=== PATIENT | female | born 1955 | race Caucasian/White ===

== ENCOUNTER 2020-06-21 17:00 | Outpatient (CLI) | payer MEDICARE, SELFPAY ==
--- NOTE | ~2020-06-21 | MM_ITS ---
EXAMINATION: MM screening maurilio BI w patience HISTORY: Screening mammogram TECHNIQUE: Craniocaudal and mediolateral oblique 3-D tomosynthesis images were obtained and synthetic 2-D images were generated. CAD analysis was submitted and interpreted. COMPARISON: 03/29/2019, 03/25/2018, 09/18/2016 bilateral digital screening mammogram examinations BREAST PARENCHYMAL COMPOSITION: There are scattered areas of fibroglandular density. FINDINGS: Bilateral upper mammographic asymmetries are noted (right MLO Tomosynthesis image 34/93, le ft MLO Tomosynthesis image 46/95); bilateral diagnostic mammography is recommended, with ultrasound i f required. Stable 5 mm circumscribed opacity in the lower outer quadrant of the right breast, consistent with be nign process. IMPRESSION: 1. Bilateral mammographic asymmetries 2. Bilateral diagnostic mammography is recommended, with ultrasound if required BI-RADS Category 0: Incomplete: Needs additional imaging evaluation. Reviewed, dictated and finalized at location A.
== END 2020-06-21 17:01 | disposition home or self-care (01) ==
LOC: ANHIMG 17:03
PROVIDERS: PCP Nurse Practitioner Family; Visit Provider Nurse Practitioner Family
DX: Z12.31 Encounter for screening mammogram for malignant neoplasm of breast (principal); R92.8 Other abnormal and inconclusive findings on diagnostic imaging of breast
CPT/HCPCS: 77063; 77067

== ENCOUNTER 2020-06-27 08:32 | Outpatient (CLI) | payer MEDICARE, SELFPAY ==
--- NOTE | 2020-06-27 11:00 | NEURO_ITS ---
Patient Number: [id number] Impression: # Complains of numbness of all extremities. # Left early Carpal Tunnel Syndrome. # Right ulnar neuropathy across the elbow. # Normal nerve conduction study of lower extremities. # Normal needle/EMG exam without any neurogenic changes. Nerve Conduction Studies Anti Sensory Summary Table Stim Site NR Peak (ms) P-T Amp (?V) Site1 Site2 Delta-P (ms) Dist (cm) Jose (m/s) Left Median Anti Sensory (2-3nd Digit) Wrist 3.4 20.5 Wrist 2-3nd Digit 3.4 14.0 41 Wrist 3.6 41.8 Wrist 2-3nd Digit 3.4 14.0 41 Right Median Anti Sensory (2-3nd Digit) Wrist 3.1 41.7 Wrist 2-3nd Digit 3.1 14.0 45 Wrist 3.0 18.8 Wrist 2-3nd Digit 3.1 14.0 45 Left Radial Anti Sensory (Base 1st Digit) Wrist 2.0 19.6 Wrist Base 1st Digit 2.0 0.0 Right Radial Anti Sensory (Base 1st Digit) Wrist 2.3 6.6 Wrist Base 1st Digit 2.3 0.0 Left Sup Fibular Anti Sensory (Ant Lat Mall) 14 cm 3.7 9.4 14 cm Ant Lat Mall 3.7 16.0 43 Right Sup Fibular Anti Sensory (Ant Lat Mall) 14 cm 3.7 1.3 14 cm Ant Lat Mall 3.7 16.0 43 Left Sural Anti Sensory (Lat Mall) Calf 3.6 10.4 Calf Lat Mall 3.6 16.0 44 Right Sural Anti Sensory (Lat Mall) Calf 3.7 7.9 Calf Lat Mall 3.7 16.0 43 Left Ulnar Anti Sensory (5th Digit) Wrist 2.3 22.0 Wrist 5th Digit 2.3 14.0 61 Right Ulnar Anti Sensory (5th Digit) Wrist 2.2 34.4 Wrist 5th Digit 2.2 14.0 64 Motor Summary Table Stim Site NR Onset (ms) O-P Amp (mV) Site1 Site2 Delta-0 (ms) Dist (cm) Jose (m/s) Left Median Motor (Abd Poll Brev) Wrist 4.0 1.4 Elbow Wrist 4.9 26.0 53 Elbow 8.9 1.1 Right Median Motor (Abd Poll Brev) Wrist 3.1 2.4 Elbow Wrist 4.7 26.0 55 Elbow 7.8 1.8 Left Peroneal Motor (Vastus Med) Ankle 4.1 0.6 Popit Ankle 7.5 36.0 48 Popit 11.6 0.5 Right Peroneal Motor (Vastus Med) Ankle 4.1 0.9 Popit Ankle 7.9 35.0 44 Popit 12.0 0.5 Left Tibial Motor (Abd Leon Brev) Ankle 4.6 3.3 Knee Ankle 9.9 40.0 40 Knee 14.5 1.3 Right Tibial Motor (Abd Leon Brev) Ankle 4.4 4.5 Knee Ankle 8.8 40.0 45 Knee 13.2 3.1 Left Ulnar Motor (Abd Dig Minimi) Wrist 2.8 3.9 A Elbow Wrist 5.3 29.0 55 A Elbow 8.1 2.8 Right Ulnar Motor (Abd Dig Minimi) Wrist 2.8 4.4 A Elbow Wrist 5.9 26.0 44 A Elbow 8.7 3.8 B Elbow Wrist 3.5 21.0 60 B Elbow 6.3 4.0 F Wave Studies NR F-Lat (ms) L-R F-Lat (ms) Left Median (Mrkrs) (Abd Poll Brev) 30.20 2.00 Right Median (Mrkrs) (Abd Poll Brev) 28.20 2.00 Left Peroneal (Mrkrs) (EDB) 53.78 0.35 Right Peroneal (Mrkrs) (EDB) 53.43 0.35 Left Tibial (Mrkrs) (Abd Hallucis) 53.21 0.04 Right Tibial (Mrkrs) (Abd Hallucis) 53.25 0.04 Left Ulnar (Mrkrs) (Abd Dig Min) 29.81 0.72 Right Ulnar (Mrkrs) (Abd Dig Min) 29.09 0.72 EMG Side Muscle Nerve Root Ins Act Fibs Amp Dur Recrt Comment Right 1stDorInt Ulnar C8-T1 Nml Nml Nml Nml Nml Right Ext Indicis Radial (Post Int) C7-8 Nml Nml Nml Nml Nml Right Ext Digitorum Radial (Post Int) C7-8 Nml Nml Nml Nml Nml Right BrachioRad Radial C5-6 Nml Nml Nml Nml Nml Right PronatorTeres Median C6-7 Nml Nml Nml Nml Nml Right Abd Poll Brev M
== END 2020-06-27 08:33 | disposition home or self-care (01) ==
LOC: ANHNEURO 08:34
PROVIDERS: PCP Nurse Practitioner Family; Visit Provider Psychiatry & Neurology Neurology
DX: R25.1 Tremor, unspecified (principal); G56.02 Carpal tunnel syndrome, left upper limb; G56.21 Lesion of ulnar nerve, right upper limb
CPT/HCPCS: 95886; 95913

== ENCOUNTER 2020-07-17 11:15 | Outpatient (CLI) | payer MEDICARE, SELFPAY ==
--- NOTE | ~2020-07-17 | MMUS_ITS ---
EXAMINATION: MM diagnostic mammo BI, US breast BI limited HISTORY: Bilateral upper mammographic asymmetries reported on screening mammogram of 06/21/2020 TECHNIQUE: Additional 3-D tomosynthesis images of both breasts were performed and synthetic 2-D image s were generated. CAD analysis was submitted and interpreted. High resolution bilateral upper outer a nd lower-outer quadrants breast ultrasound was performed. COMPARISON: 06/21/2020 bilateral digital screening mammogram FINDINGS: MAMMOGRAPHIC FINDINGS: There is a benign appearing 6 mm circumscribed opacity with halo sign in the lower outer quadrant rig ht breast, likely a small cyst benign cyst. No reproducible suspicious mass or architectural distorti on is evident in either breast. No malignant calcification, skin thickening or retraction. ULTRASOUND: No suspicious mass or shadowing or other significant sonographic abnormality is noted in the upper ou ter or lower outer quadrants of either breast. IMPRESSION: 1. No mammographic evidence of malignancy 2. Routine mammographic screening is recommended. BI-RADS Category 2: Benign finding(s). Reviewed, dictated and finalized at location A. IMPRESSION: 1. No mammographic evidence of malignancy 2. Routine mammographic screening is recommended. BI-RADS Category 2: Benign finding(s).
== END 2020-07-17 11:16 | disposition home or self-care (01) ==
PROVIDERS: PCP Nurse Practitioner Family; Visit Provider Nurse Practitioner Family
DX: R92.8 Other abnormal and inconclusive findings on diagnostic imaging of breast (principal)
CPT/HCPCS: 76642; 77066

== ENCOUNTER 2020-10-11 13:12 | Emergency (ER) | payer MEDICARE, SELFPAY ==
--- NOTE | ~2020-10-11 | XR_ITS ---
XR foot RT min 3V DATE: 10/11/2020 13:45 INDICATION: Distal foot pain following injury 2 days ago TECHNIQUE: 4 views COMPARISON: None FINDINGS: There is a virtually nondisplaced comminuted intra-articular fracture of the head of the pr oximal phalanx of the second digit. Diffuse osteopenia. No other fracture or dislocation, periosteal reaction or bone destruction. IMPRESSION: Comminuted intra-articular fracture of the head of the proximal phalanx of the second dig it Reviewed, dictated and finalized at location A. FIC ENGINEERING DIRECTOR IMPRESSION: Comminuted intra-articular fracture of the head of the proximal pha lanx of the second digit
[2020-10-11 13:31] VITALS: BP 131/60; PULSE 75; RESP 16; TEMP 36.9; O2SAT 99
--- NOTE | 2020-10-11 14:13 | ED.LOWEXIN ---
HPI - Extremity Injury (Lower) General Chief Complaint: Extremity Injury, Lower Stated Complaint: fell injury 2nd digit right foot Source: patient and RN notes reviewed Mode of arrival: ambulatory Limitations: no limitations History of Present Illness HPI Narrative: This is a 65-year-old white female who presented to urgent care today with complaints of pain, swelling, warmth and erythema to her second digit of her right foot. Patient also noted that she had drainage from her second digit of the right foot. according to patient she was walking upstairs when her slippers on in tripped on a step afterwards her toes started to swell, developed discoloration, warmth, redness and throbbing. patient has a history of sepsis caused by wound. Patient's x-ray did indicate Comminuted intra-articular fracture of the head of the proximal phalanx of the second digit. The patient denies SOB, CP, palpitation, extremity numbness, lightheadedness, dizziness, constipation, diarrhea, chills, or fever. Related Data Home Medications Medication Instructions Recorded Confirmed albuterol sulfate 90 mcg INHALATION PRN PRN 10/11/20 10/11/20 alprazolam 0.25 mg PO PRN PRN 10/11/20 10/11/20 benzonatate 100 mg PO PRN PRN 10/11/20 10/11/20 cholecalciferol (vitamin D3) 1,250 mcg PO WEEKLY 10/11/20 10/11/20 doxycycline hyclate 100 mg PO DAILY 10/11/20 10/11/20 gabapentin 100 mg PO TID 10/11/20 10/11/20 montelukast 10 mg PO DAILY 10/11/20 10/11/20 pantoprazole 40 mg PO DAILY 10/11/20 10/11/20 propranolol 60 mg PO DAILY 10/11/20 10/11/20 tramadol 50 mg PO PRN PRN 10/11/20 10/11/20 zolpidem 10 mg PO DAILY 10/11/20 10/11/20 Allergies Allergy/AdvReac Type Severity Reaction Status Date / Time Quinolones Allergy Severe Hives Verified 10/11/20 13:38 Sulfa (Sulfonamide Allergy Intermediate Dry Mouth Verified 10/11/20 13:38 Antibiotics) levofloxacin AdvReac Severe Hives Verified 10/11/20 13:38 ipratropium AdvReac Intermediate SPIRIVA Verified 10/11/20 13:38 ALLERGY - NOT IN DRUG LISTING [facility] Family History Family History Mother Family history of chronic obstructive pulmonary disease Father Family history of pancreatic cancer Diabetes mellitus Sibling Family history of malignant neoplasm of kidney Family history of amyotrophic lateral sclerosis Family history of malignant neoplasm, Onset Age: 73 Grandparent Family history of heart disease in male family member before age 55 Other Family history of cardiovascular disease Hypertension Social History Social History Smoking status: Current every day smoker Alcohol intake: never Gender identity (if verbalized by the patient): Female Exam Narrative: Exam Narrative: GENERAL: This is a well-nourished, well-developed patient, in no apparent distress. HEAD: normocephalic, atraumatic. EYES: PERRL. Sclera clear/white. Vision is grossly intact. EARS: External ears normal, auditory canals clear and without drainage, TMs normal without perforation. Hearing grossly intact. NOSE: External nose normal with no obvious nasal discharge, nares without redness, no rhinorrhea. THROAT: Mucous membranes moist, posterior pharynx clear. NECK: Neck supple, non-tender without lymphadenopathy, masses or thyromegaly. CARDIOVASCULAR: Regular rate and rhythm without murmurs, gallops, or rubs. RESPIRATORY: Clear to auscultation. Breath sounds equal bilaterally. No wheezes, rales, or rhonchi. GASTROINTESTINAL: Abdomen soft, non-tender, nondistended. Bowel sounds are active. No hepato-splenomegaly, or palpable masses. No guarding. SKIN: warm, intact with no suspicious lesions or rash, good texture and turgor. NEURO: awake, alert, and oriented to person, place and time. There were no obvious focal neurologic abnormalities. Steady gait EXTREMITIES: Right foot second digit edematous with e
== END 2020-10-11 14:21 | disposition home or self-care (01) ==
PROVIDERS: Emergency Provider Nurse Practitioner; PCP Nurse Practitioner Family
DX: S92.514A Nondisplaced fracture of proximal phalanx of right lesser toe(s), initial encounter for closed fracture (principal); W10.9XXA Fall (on) (from) unspecified stairs and steps, initial encounter; L03.031 Cellulitis of right toe; Z20.828 Contact with and (suspected) exposure to other viral communicable diseases; F17.200 Nicotine dependence, unspecified, uncomplicated
CPT/HCPCS: 73630; 99214; G0463

== ENCOUNTER 2021-08-06 08:01 | Outpatient (CLI) | payer MEDICARE, SELFPAY ==
--- NOTE | ~2021-08-06 | US_ITS ---
EXAMINATION: US abdomen complete EXAM DATE: 08/06/2021 09:06 INDICATION: RLQ Abd Pain. Right Sided Pain . TECHNIQUE: Multiple grayscale and Doppler images of the complete abdomen were obtained (by a technolo gist who performed the scan) and subsequently reviewed. Comparison is made to prior examination from 01/17/15. FINDINGS: The abdominal aorta is normal in caliber. Visualized portion IVC is patent. The pancreatic head a nd body are normal in appearance. The pancreatic tail is not visualized. The liver has normal echogenicity and contour. There are no focal liver lesions identified. There is no evidence of intrahepatic biliary duct dilation. Portal venous flow was seen in the hepatopedal , normal direction and has normal Doppler waveform. Common bile duct measures 3 mm, which is normal. The gallbladder fossa is unremarkable. Right kidney: There is normal contour and echogenicity. It measures 7.7 x 3.7 x 3.4 centimeters. T here are no focal renal lesions identified. There is no hydronephrosis. Left kidney: There is normal contour and echogenicity. It measures 9.3 x 4.8 x 4.5 centimeters. Th ere are no focal renal lesions identified. There is no hydronephrosis. The spleen is morphologically normal. IMPRESSION: 1. Mild right renal atrophy. 2. No acute findings. Reviewed, dictated and finalized at location A.
== END 2021-08-06 08:02 | disposition home or self-care (01) ==
PROVIDERS: PCP Nurse Practitioner Family; Visit Provider Nurse Practitioner Family
DX: R10.31 Right lower quadrant pain (principal); N26.1 Atrophy of kidney (terminal)
CPT/HCPCS: 76700

== ENCOUNTER → 2021-08-20 10:10 | Outpatient (CLI) | payer MEDICARE, SELFPAY ==
--- NOTE | ~2021-08-20 | CT_ITS ---
EXAMINATION: CT abdomen pelvis wo con DATE: 08/20/2021 10:35 INDICATION: Right lower quadrant pain TECHNIQUE: Computed tomography (CT) of the abdomen and pelvis was performed without intravenous contr ast. The dose-length product (DLP) was 873.01 mGy-cm. Automated exposure control and iterative recons truction technique were employed. COMPARISON: 11/21/2019 FINDINGS: Minimal dependent atelectasis is present in the lung bases. The heart size is normal. There is a moderate-sized sliding hiatal hernia. The gallbladder is surgically absent. Punctate calcificat ions in an otherwise normal spleen likely represent healed granulomatous disease. The pancreas and ad renal glands are normal. The kidneys are unremarkable. There is calcified atherosclerosis of the aort a and many of the other arteries. No pathologically enlarged abdominal or pelvic lymph nodes are iden tified. There is no free intraperitoneal gas or evidence of bowel obstruction. Colonic diverticulosis is present without evidence of diverticulitis. The appendix is normal. There is mild lumbar spondylo sis. Fat-containing umbilical hernia is noted. IMPRESSION: 1. No CT correlate for the patient's symptoms. 2. Diverticulosis without evidence of diverticulitis. Reviewed, dictated and finalized at location A.
== END ==
PROVIDERS: PCP Nurse Practitioner Family; Visit Provider Surgery
DX: R10.31 Right lower quadrant pain (principal); K57.30 Diverticulosis of large intestine without perforation or abscess without bleeding
CPT/HCPCS: 74176

== ENCOUNTER 2022-08-20 10:09 | Outpatient (CLI) | payer MEDICARE, SELFPAY ==
--- NOTE | ~2022-08-20 | MM_ITS ---
EXAMINATION: MM screening [facility] BI w patience HISTORY: Screening TECHNIQUE: Craniocaudal and mediolateral oblique 3-D tomosynthesis images were obtained and synthetic 2-D images were generated. CAD analysis was submitted and interpreted. COMPARISON: Comparison to multiple prior studies sequentially, with oldest reviewed study dated 07/2015. BREAST PARENCHYMAL COMPOSITION: There are scattered areas of fibroglandular density. FINDINGS: There is no evidence of suspicious mass, calcification, or architectural distortion to sugg est malignancy in either breast. There has been no suspicious interval change. IMPRESSION: 1. No mammographic evidence of malignancy. 2. Recommend routine screening mammography in one year. BI-RADS Category 1: Negative Reviewed, dictated and finalized at location A.
== END 2022-08-20 10:10 | disposition home or self-care (01) ==
LOC: ANHIMG 10:12
PROVIDERS: PCP Nurse Practitioner Family; Visit Provider Obstetrics & Gynecology
DX: Z12.31 Encounter for screening mammogram for malignant neoplasm of breast (principal)
CPT/HCPCS: 77063; 77067

== ENCOUNTER 2022-10-09 08:44 | Outpatient (CLI) | payer MEDICARE, SELFPAY ==
--- NOTE | ~2022-10-09 | MR_ITS ---
EXAMINATION: MR brain/brain stem wo/w con DATE: 10/09/2022 19:25 TISSUE PACKER INDICATION: Familial ALS. Vision changes. TECHNIQUE: Magnetic resonance imaging (MRI) of the brain and brainstem was performed without and with 15 cc MultiHance intravenous contrast. Sequences included sagittal and axial T1-weighted SE, axial d iffusion-weighted FS SE, axial T2*-weighted GRE, axial T2-weighted FLAIR Propeller, and axial T2-weig hted Propeller. Apparent diffusion coefficient (ADC) maps were created. COMPARISON: MRI dated 11/18/2012 FINDINGS: The brain volume and ventricular system are within normal limits. The brain parenchymal si gnal intensity pattern and celaya/white matter is normal and there is no evidence of hemorrhage, space occupying masses or infarctions. There are scattered mild periventricular and subcortical white matte r changes, most likely related to small vessel ischemic disease (microangiopathy). No abnormal contra st enhancement. The flow signal voids of the major arterial structures about the [place] and within the barry r dural venous sinuses appear grossly unremarkable and patent. The seventh and eighth cranial nerve complexes are normal. The mid sagittal image demonstrates a normal craniovertebral junction and yaritza us callosum. The paranasal sinuses are grossly unremarkable. No abnormal contrast enhancement was appreciated. IMPRESSION: 1: No acute intracranial abnormality. 2: Chronic age-related findings. Reviewed, dictated and finalized at location A. UE PACKER
--- NOTE | ~2022-10-09 | US_ITS ---
US thyroid INDICATION: Thyroid nodules TECHNIQUE: Real-time sonographic images of the thyroid gland were obtained. COMPARISON: No prior studies for comparison. FINDINGS: The right thyroid lobe measures 4.2 x 2.2 x 1.6 cm. The left thyroid lobe measures 3.8 x 1 .5 x 1.6 cm. There is normal echotexture and echogenicity throughout the thyroid gland. There are mul tiple small nodules in both lobes of the thyroid gland. Largest dominant nodule in the right lobe cathy sures 7 x 5 x 4 mm. This nodule is solid, hypoechoic, wider than tall, smoothly marginated without ec hogenic foci, TR 4. Largest dominant nodule in the left lobe measures 6 x 6 x 5 mm and is solid, hype rechoic, wider than tall, ill-defined margins with punctate echogenic foci, TR 4. Normal vascular aziza w is present. IMPRESSION: 1. Bilateral thyroid nodules, consistent with multinodular goiter. None of the nodules meet sonograp hic criteria for biopsy. Reviewed, dictated and finalized at location A. RIOR WALL ASSEMBLER IMPRESSION: 1. Bilateral thyroid nodules, consistent with multinodular goiter. None of the nodules meet sonographic criteria for biopsy.
== END 2022-10-09 08:45 | disposition home or self-care (01) ==
PROVIDERS: PCP Nurse Practitioner Family; Visit Provider Nurse Practitioner Family
DX: G12.21 Amyotrophic lateral sclerosis (principal); H53.9 Unspecified visual disturbance; H53.2 Diplopia; R25.1 Tremor, unspecified; R41.3 Other amnesia; R91.8 Other nonspecific abnormal finding of lung field
CPT/HCPCS: 70553; 76536; A9577

== ENCOUNTER 2023-09-02 14:16 | Outpatient (CLI) | payer MEDICARE, SELFPAY ==
--- NOTE | ~2023-09-02 | MM_ITS ---
EXAMINATION: MM screening [facility] BI w patience HISTORY: Screening mammogram TECHNIQUE: Craniocaudal and mediolateral oblique 3-D tomosynthesis images were obtained and synthetic 2-D images were generated. CAD analysis was submitted and interpreted. COMPARISON: 08/20/2022, 07/17/2020, 06/21/2020, 03/29/2019 BREAST PARENCHYMAL COMPOSITION: There are scattered areas of fibroglandular density. FINDINGS: No suspicious mass, calcification, or architectural distortion are identified in either joss ast to suggest malignancy. There has been no suspicious interval change. IMPRESSION: 1. No mammographic evidence of malignancy. 2. Recommend routine screening mammography in one year. BI-RADS Category 1: Negative Reviewed, dictated and finalized at location A.
== END 2023-09-02 14:17 | disposition home or self-care (01) ==
LOC: ANHIMG 14:18
PROVIDERS: PCP Nurse Practitioner Family; Visit Provider Obstetrics & Gynecology
DX: Z12.31 Encounter for screening mammogram for malignant neoplasm of breast (principal)
CPT/HCPCS: 77063; 77067

== ENCOUNTER 2024-11-23 13:15 | Outpatient (CLI) | payer MEDICARE, SELFPAY ==
--- NOTE | ~2024-11-23 | MMUS_ITS ---
EXAMINATION: MM diagnostic maurilio BI w patience, US breast LT limited HISTORY: Palpable left breast abnormality. TECHNIQUE: Additional 3-D tomosynthesis images of the breasts were performed and synthetic 2-D images were generated. CAD analysis was submitted and interpreted. High resolution Limited left breast ultr asound was performed. COMPARISON: Comparison to multiple prior studies sequentially, with oldest reviewed study dated 03/25. BREAST PARENCHYMAL COMPOSITION: Not dense: There are scattered areas of fibroglandular density. FINDINGS: MAMMOGRAPHIC FINDINGS: The breasts are stable. No new masses, calcifications or architectural distortion in either breast to suggest malignancy. ULTRASOUND: Limited left breast ultrasound: Normal heterogeneous echotexture without focal solid or cystic mass. IMPRESSION: 1. No evidence for malignancy in either breast. 2. Routine yearly screening mammogram and regular clinical breast examination are recommended. BI-RADS Category 1: Negative Reviewed, dictated and finalized at location A. NICAL TRAINING COORDINATOR IMPRESSION: 1. No evidence for malignancy in either breast. 2. Routine yearly screening mammogram and regular clinical breast examination a re recommended. BI-RADS Category 1: Negative
== END 2024-11-23 13:16 | disposition home or self-care (01) ==
LOC: ANHIMG 13:19
PROVIDERS: PCP Nurse Practitioner Family; Visit Provider Obstetrics & Gynecology
DX: N64.4 Mastodynia (principal)
CPT/HCPCS: 76642; 77062; 77066; G0279

== ENCOUNTER 2024-12-22 06:54 | Emergency (ER) | payer MEDICARE, SELFPAY ==
--- NOTE | ~2024-12-22 | XR_ITS ---
Clinical Indication: Dyspnea AP and lateral views of the chest: Comparison: 11/18/2017 Findings: There is mild haziness right lung base. Left lung clear. Cardiomediastinal silhouette is w ithin normal limits. Bones and soft tissues are unremarkable. Impression: Probable subtle right basilar pneumonia. Reviewed, dictated and finalized at location . SPECIALIST Impression: Probable subtle right basilar pneumonia.
--- OUTSIDE RECORDS SUMMARY | 2024-12-22 06:56 | XMS_ITS | Encounter Summary ---
Author Organization [facility] Address [address] [place] [id number] Care Team Providers Care Cage Manager Name Role Phone Deena Gar Primary Care Provider Reason for Referral * Medication Prior Authorization - Closed Specialty Diagnoses / Procedures Referred By Torie t Referred To Contact Diagnoses Wheezing Deena Gar FNP [address] [place] [id number] Phone: tel: fax: Referral ID Status Reason Start Date Expiration Date Visits Re quested Visits Authorized [id number] Closed 1 1 CELLAR STOCK CLERK Reason for Visit * Reason Comments Cough Sore Throat Congestion Fever 99.6 Encounter Details Date Type Department Care Team (Late st Contact Info) Description 12/21/2024 10:40 AM WINE CELLAR STOCK CLERK Telemedicine [facility] [id number] [place] [id number] Deena Gar FNP [facility] [place] [address] Cough; Sore Throat; Congestion; Fever (99.6) Social History Tobacco Use Types Packs/Day Years Used Date Smoking Tobacco: Former Cigarettes 1 15 0 07/12/1986 - 07/12/2001 Passive Smoke Exposure: Past Smokeless Tobacco: Never Alcohol Use Standard Drinks/Week Comments Not Currently 1.7 (1 standard drin k = 0.6 oz pure alcohol) Only on occasion when dining out not weekly or daily AUDIT-C Answer Date Recorded Frequency of Alcohol Consumption Never 02/22/2019 Average Number of Drinks Not on file 019 Frequency of Binge Drinking Not on file 02/01 PHQ-2 Answer Date Recorded Patient Health Questionnaire-2 Score 0 12/21/2024 Comments No Sex and Gender Information Value Date Recorded Sex Assigned at Female 12/12/2024 11:16 AM WINE CELLAR STOCK CLERK Legal Sex Female 12:12 PM CDT Gender Identity Female 12/12/2024 11:16 AM WINE CELLAR STOCK CLERK Sexual Orientation Not on file documented as of this encounter Patient Instructions * Patient Instructions* DANI Reveles - 12/21/2024 10:40 AM WINE CELLAR STOCK CLERK Take medication as prescribed You may continue to use rkcq-[id number] medications as needed for symptom relief Call for any questions or concerns Follow-up routinely, sooner if needed, especially if your symptoms do not improve over the next 48 hours CELLAR STOCK CLERK documented in this encounter Progress Notes * DANI Reveles - 12/21/2024 10:40 AM CSTSummary: Flulike symptoms with exposure, sinus sxs and wheezing Office Progress Note Reason for Visit: Cough, Sore Throat, Congestion, and Fever (99.6) I introduced and identified myself, received verbal consent from the patient to proceed with this virtual visit and made the patient aware that the same confidentiality and information systems architect practices apply. The patient confirmed at the start of this visit that they are completing this visit from Home, currently located in the [facility] [[id number]], a state in which I am licensed to practice. I completed the virtual visit from: [facility] [address] [address] Dept: [phone] Dept . The following technology was used to complete this visit: Video & Audio Total time spent on the encounter during the day of service: 22 minutes The following clinical staff helped with this visit MA: jose Washington . History of Present Illness: Robyn presents via virtual visit for complaints of flulike symptoms She reports on Thursday or Thursday, she started with fatigue and low-grade fever. She also started with a sore throat and has had a cough with postnasal drainage and thick phlegm. She reports that theTessalon Perles are not helping. She is also been using her albuterol nebulizers to help break up her chest congestion. Her daughter just recently tested positive for influenza and they live in the [facility]. She has been using xkkr-jnw-ykqusyl medications as needed for symptom relief She also reports that her has same symptoms. She did not test for COVID or flu. ROS: Review of Systems Constitutional: Positive for chills, fever and malaise/fatigue. Negative for diaphoresis and weightloss. HENT: Positive for congestion, sinus pain and sore throat. Negative for ear discharge, ear pain, hearing loss, nosebleeds and tinnitus. Postnasal drainage Eyes: Negative for blurred vision, double vision, photophobia, pain, discharge and redness. Respiratory: Positive for cough and sputum production. Negative for hemoptysis, shortness of breath, wheezing and stridor. Cardiovascular: Negative for chest pain, palpitations, orthopnea, claudication, leg swelling and PND. Gastrointestinal: Negative for abdominal pain, blood in stool, constipation, diarrhea, heartburn, melena, nausea and vomiting. Genitourinary: Negative for dysuria, flank pain, frequency, hematuria and urgency. Musculoskeletal: Positive for myalgias. Negative for back pain, falls, joint pain and neck pain. Skin: Negative for itching and rash. Neurological: Positive for headaches. Negative for dizziness, tingling, tremors, sensory change, speech change, focal weakness, seizures, loss of consciousness and weakness. Endo/Heme/Allergies: Negative for environmental allergies and polydipsia. Does not bruise/bleed easily. Psychiatric/Behavioral: Negative for depression, hallucinations, memory loss, substance abuse and suicidal ideas. The patient is not nervous/anxious and does not have insomnia. Medications: Current Outpatient Medications on File Prior to Visit Medication Sig albuterol sulfate HFA 108 (90 Base) MCG/ACT inhaler Inhale 2 puffs into the lungs every 4 (four) hours as needed for Wheezing. ALPRAZolam (XANAX) 0.25 MG tablet TAKE 1 TABLET BY MOUTH THREE TIMES DAILY benzonatate (TESSALON) 100 MG capsule take 1 capsule by mouth 3 times a day as needed for cough bimatoprost (LUMIGAN) 0.03 % ophthalmic solution Place 1 drop into both eyes nightly at bedtime. cetirizine-pseudoephedrine ER (ZYRTEC-D) 5mg-120mg 12 hr tablet Take 1 tablet by mouth 2 (two) times daily as needed for Allergies or Rhinitis. clotrimazole-betamethasone (LOTRISONE) cream Apply topically 2 (two) times daily. cyclobenzaprine (FLEXERIL) 5 MG tablet Take 1-2 tablets (5-10 mg total) by mouth 3 (three) times daily as needed for Muscle Spasms. famotidine (PEPCID) 40 MG tablet Take 1 tablet (40 mg total) by mouth 2 (two) times daily. Fluocinolone Acetonide 0.01 % Oil Place 1 drop in ear(s) daily as needed. furosemide (LASIX) 20 MG tablet Take 1 tablet (20 mg total) by mouth daily. levocetirizine (XYZAL) 5 MG tablet Take 1 tablet (5 mg total) by mouth daily. lidocaine (LIDODERM) 5 % Place 1 patch onto the skin daily for 30 days. Remove & Discard patch within 12 hours or as directed by lisinopril (PRINIVIL) 20 MG tablet Take 1 tablet (20 mg total) by mouth daily. metroNIDAZOLE (METROGEL) 0.75 % vaginal gel INSERT 1 APPLICATORFUL VAGINALLY ONCE DAILY AT BEDTIME FOR 7 DAYS montelukast (SINGULAIR) 10 MG tablet Take 1 tablet (10 mg total) by mouth nightly at bedtime. NON FORMULARY Cbd/thc cream 3:1 pantoprazole EC (PROTONIX) 40 MG tablet Take 1 tablet (40 mg total) by mouth daily. traMADol (ULTRAM) 50 MG tablet Take 1 tablet (50 mg total) by mouth every 6 (six) hours as needed. Indications: Chronic Pain tretinoin (RETIN-A) 0.1 % cream Apply topically nightly at bedtime. vitamin D3 (CHOLECALCIFEROL) 1.25 mg capsule TAKE 1 CAPSULE BY MOUTH ONE TIME PER WEEK zolpidem (AMBIEN) 10 MG tablet Take 1 tablet (10 mg total) by mouth nightly as needed. FOR SLEEP No current facility-administered medications on file prior to visit. Allergies: Review of patient's allergies indicates: Allergen Reactions Ciprofloxacin Unknown Flagyl [Metronidazole] Other (see comment) Overactive saliva glands Ipratropium Rash Levaquin [Levofloxacin] Rash Macrobid [Nitrofurantoin] Rash Quinolones Rash Sulfa Antibiotics Rash Medical History: Past Medical History: Diagnosis Date Anxiety Depression Diarrhea 02/28/2019 Diverticulitis 02/28/2019 Esophagitis 02/28/2019 GERD (gastroesophageal reflux disease) Hearing aid worn Hypertension Varies day to day Hypocalcemia 02/28/2019 Liver lesion 02/28/2019 Neuromuscular disorder (CMS/HCC HHS/HCC) LAURYN (obstructive sleep apnea) 02/28/2019 Pneumonia 02/28/2019 Seasonal allergies 02/28/2019 Surgical History: Past Surgical History: Procedure Laterality Date CHOLECYSTECTOMY HYSTERECTOMY Social History: Social History Socioeconomic History Marital status: Tobacco Use Smoking status: Former Current packs/day: 0.00 Average packs/day: 1 pack/day for 15.0 years (15.0 ttl pk-yrs) Types: Cigarettes Start date: 07/12/1986 Quit date: 07/12/2001 Years since quittin.4 Passive exposure: Past Smokeless tobacco: Never Vaping Use Vaping status: Never Used Substance and Sexual Activity Alcohol use: Not Currently Alcohol/week: 1.7 standard drinks of alcohol Types: 1 Glasses of wine per week Comment: Only on occasion when dining out not weekly or daily Drug use: No Sexual activity: Not Currently Partners: Male control/protection: None Family History: Family History Problem Relation Name Age of Onset COPD Mother Pam Hypertension Mother Pam Cancer Father QUETA Barrera Alcohol Abuse Father QUETA Barrera ALS Sister Olga Cancer Sister Olga Kidney CA Heart Maternal Grandfather Heart Paternal Grandfather PE: Physical Exam Constitutional: General: She is not in acute distress. Appearance: Normal appearance. She is well-developed and well-groomed. She is ill-appearing. She isnot toxic-appearing or diaphoretic. HENT: Head: Normocephalic and atraumatic. Right Ear: Hearing and external ear normal. Left Ear: Hearing and external ear normal. Nose: Congestion (Sounds congested during virtual visit) present. Mouth/Throat: Lips: [place]. Mouth: Mucous membranes are moist. Eyes: General: Lids are normal. Vision grossly intact. Gaze aligned appropriately. Extraocular Movements: Extraocular movements intact. Conjunctiva/sclera: Conjunctivae normal. Pulmonary: Effort: Pulmonary effort is normal. No tachypnea, bradypnea, accessory muscle usage, prolonged expiration, respiratory distress or retractions. Comments: Able to talk in complete sentences without any evidence of dyspnea or shortness of breathduring virtual visit Musculoskeletal: Cervical back: Full passive range of motion without pain and normal range of motion. Neurological: Mental Status: She is alert and oriented to person, place, and time. Psychiatric: Attention and Perception: Attention and perception normal. Mood and Affect: Mood and affect normal. Speech: Speech normal. Behavior: Behavior normal. Behavior is cooperative. Thought Content: Thought content normal. Cognition and Memory: Cognition and memory normal. Judgment: Judgment normal. There were no vitals filed for this visit. Diagnoses/Impression: 1. Exposure to the flu 2. Flu-like symptoms 3. Acute non-recurrent frontal sinusitis amoxicillin-clavulanate (AUGMENTIN) 875-125 MG tablet 4. Acute cough methylPREDNISolone, EVIN, (MEDROL DOSEPAK) 4 MG tablet guaiFENesin-codeine (GUAIFENESIN AC) 100-10 MG/5ML syrup 5. Wheezing albuterol (PROVENTIL) (2.5 MG/3ML) 0.083% nebulizer solution Recommendations and Plan: 1. Exposure to the flu She is past the point of treatment with an antiviral and so she will continue [id number]-[id number] medications as needed for symptom relief We discussed resting and keeping hydrated Following up routinely, sooner if needed 2. Flu-like symptoms She is past the point of treatment with an antiviral and so she will continue [id number]-[id number] medications as needed for symptom relief We discussed resting and keeping hydrated Following up routinely, sooner if needed 3. Acute non-recurrent frontal sinusitis - amoxicillin-clavulanate (AUGMENTIN) 875-125 MG tablet; Take 1 tablet (875 mg total) by mouth 2 (two) times daily for 10 days. Dispense: 20 tablet; Refill: 0 Advised to take medication as prescribed We discussed following up routinely, sooner if needed 4. Acute cough - methylPREDNISolone, EVIN, (MEDROL DOSEPAK) 4 MG tablet; Follow package directions Dispense: 1 each; Refill: 0 - guaiFENesin-codeine (GUAIFENESIN AC) 100-10 MG/5ML syrup; Take 5 mLs by mouth every 4 (four) hours as needed for Cough. Indications: Cough Dispense: 237 mL; Refill: 0 Advised to take medication as prescribed We discussed resting and increase her fluid intake Advised to follow-up routinely, sooner if needed 5. Wheezing - albuterol (PROVENTIL) (2.5 MG/3ML) 0.083% nebulizer solution; Take 3 mLs (2.5 mg total) by nebulization every 6 (six) hours as needed for Wheezing. Dispense: 360 mL; Refill: 2 Advised to use the nebulizer treatments as prescribed and as needed We discussed calling or returning for any continued issues or concerns that persist past 48 hours or if she has any new or worsening symptoms Orders Placed This Encounter amoxicillin-clavulanate (AUGMENTIN) 875-125 MG tablet methylPREDNISolone, EVIN, (MEDROL DOSEPAK) 4 MG tablet guaiFENesin-codeine (GUAIFENESIN AC) 100-10 MG/5ML syrup albuterol (PROVENTIL) (2.5 MG/3ML) 0.083% nebulizer solution Cannot display discharge medications since this is not an admission. PCP: DANI MARY 12/21/2024 CELLAR STOCK CLERK documented in this encounter Plan of Treatment Not on file documented as of this encounter Visit Diagnoses Diagnosis Exposure to the flu- Primary Contact with or exposure to other viral diseases Flu-like symptoms Influenza with other respiratory manifestations Acute non-recurrent frontal sinusitis Acute cough Wheezing documented in this encounter Additional Health Concerns Assessment Noted Time PHQ-9 Depression Total Score: 18 024 11:24 AM CDT documented as of this encounter Care Teams Cage Manager Relationship Specialty Start Date End Date Deena Gar FNP [address] [place] [id number] PCP - General Nurse Practitioner Family 02/22/19 documented as of this encounter
--- OUTSIDE RECORDS SUMMARY | 2024-12-22 06:56 | XMS_ITS | Clinical Summary ---
Author Organization [facility] Address [address] [place] [address] Care Team Providers Care Tub Rider Name Role Phone Diane Thomas DANI Primary Care Provider [phone] Allergies Active Allergy Reactions Criticality Noted Date Comments Ciprofloxacin Unknown 08/07/2021 Metronidazole Other (see comment) 08/07/2021 Overactive saliva glands Ipratropium Rash Low 02/22/2019 Levofloxacin Rash Low 02/22/2019 Nitrofurantoin Rash Low 02/22/2019 Quinolones Rash Low 02/22/2019 Sulfa Antibiotics Rash Low 02/22/2019 Medications ALPRAZolam (XANAX) 0.25 MG tabletIndication s:Anxiety TAKE 1 TABLET BY MOUTH THREE TIMES DAILY 90 tablet 05/14/20 23 Active NON FORMULARY Cbd/thc cream 3:1 Active lisinopril (PRINIVIL) 20 MG tabletIndication s:Primary hypertension Take 1 tablet (20 mg total) by mouth daily. 90 tablet 3 12/24/19 24 025 Active Fluocinolone Acetonide 0.01 % OilIndications:E ar itching Place 1 drop in ear(s) daily as needed. 20 mL 1 12/24/19 24 Active levocetirizine (XYZAL) 5 MG tabletIndication s:Allergic rhinitis, unspecified seasonality, unspecified trigger,Seasonal allergies Take 1 tablet (5 mg total) by mouth daily. 90 tablet 3 12/24/19 24 Active benzonatate (TESSALON) 100 MG capsuleIndicatio ns:Chronic cough take 1 capsule by mouth 3 times a day as needed for cough 90 capsule 3 02/25/20 24 Active metroNIDAZOLE (METROGEL) 0.75 % vaginal gelIndications:B V (bacterial vaginosis) INSERT 1 APPLICATORFUL VAGINALLY ONCE DAILY AT BEDTIME FOR 7 DAYS 70 g 05/04/20 24 Active lidocaine (LIDODERM) 5 %Indications:Chr onic right-sided low back pain without sciatica Place 1 patch onto the skin daily for 30 days. Remove & Discard patch within 12 hours or as directed by MD 30 patch 12/12/19 25 025 Active cetirizine-pseud oephedrine ER (ZYRTEC-D) 5mg-120mg 12 hr tabletIndication s:Allergic rhinitis, unspecified seasonality, unspecified trigger Take 1 tablet by mouth 2 (two) times daily as needed for Allergies or Rhinitis. 28 tablet 12/12/19 25 Active cyclobenzaprine (FLEXERIL) 5 MG tabletIndication s:Chronic right-sided low back pain without sciatica Take 1-2 tablets (5-10 mg total) by mouth 3 (three) times daily as needed for Muscle Spasms. 30 tablet 12/12/19 25 Active zolpidem (AMBIEN) 10 MG tabletIndication s:Primary insomnia Take 1 tablet (10 mg total) by mouth nightly as needed. FOR SLEEP 90 tablet 1 12/12/19 25 Active vitamin D3 (CHOLECALCIFEROL ) 1.25 mg capsuleIndicatio ns:Vitamin D deficiency TAKE 1 CAPSULE BY MOUTH ONE TIME PER WEEK 12 capsule 3 12/12/19 25 Active tretinoin (RETIN-A) 0.1 % creamIndications :Other acne Apply topically nightly at bedtime. 45 g 2 12/12/19 25 Active traMADol (ULTRAM) 50 MG tabletIndication s:Chronic Pain Take 1 tablet (50 mg total) by mouth every 6 (six) hours as needed. Indications: Chronic Pain 120 tablet 1 12/12/19 25 Active pantoprazole EC (PROTONIX) 40 MG tabletIndication s:Gastroesophage al reflux disease, unspecified whether esophagitis present Take 1 tablet (40 mg total) by mouth daily. 90 tablet 3 12/12/19 25 Active montelukast (SINGULAIR) 10 MG tabletIndication s:Allergic rhinitis, unspecified seasonality, unspecified trigger Take 1 tablet (10 mg total) by mouth nightly at bedtime. 90 tablet 3 12/12/19 25 Active furosemide (LASIX) 20 MG tabletIndication s:Essential hypertension Take 1 tablet (20 mg total) by mouth daily. 90 tablet 3 12/12/19 25 Active famotidine (PEPCID) 40 MG tabletIndication s:Gastroesophage al reflux disease, unspecified whether esophagitis present Take 1 tablet (40 mg total) by mouth 2 (two) times daily. 180 tablet 1 12/12/19 25 Active clotrimazole-bet amethasone (LOTRISONE) creamIndications :Lichen sclerosus of female genitalia Apply topically 2 (two) times daily. 45 g 3 12/12/19 25 Active bimatoprost (LUMIGAN) 0.03 % ophthalmic solutionIndicati ons:Glaucoma, unspecified glaucoma type, unspecified laterality Place 1 drop into both eyes nightly at bedtime. 7.5 mL 5 12/12/19 25 Active albuterol sulfate HFA 108 (90 Base) MCG/ACT inhalerIndicatio ns:Chronic bronchitis, unspecified chronic bronchitis type (CMS/HCC [facility]) Inhale 2 puffs into the lungs every 4 (four) hours as needed for Wheezing. 18 g 6 12/12/19 25 Active amoxicillin-clav ulanate (AUGMENTIN) 875-125 MG tabletIndication s:Acute non-recurrent frontal sinusitis Take 1 tablet (875 mg total) by mouth 2 (two) times daily for 10 days. 20 tablet 12/21/19 25 025 Active methylPREDNISolo EVIN chatman, (MEDROL DOSEPAK) 4 MG tabletIndication s:Acute cough Follow package directions 1 each 12/21/19 25 Active guaiFENesin-code ine (GUAIFENESIN AC) 100-10 MG/5ML syrupIndications :Cough Take 5 mLs by mouth every 4 (four) hours as needed for Cough. Indications: Cough 237 mL 12/21/19 25 Active albuterol (PROVENTIL) (2.5 MG/3ML) 0.083% nebulizer solutionIndicati ons:Wheezing Take 3 mLs (2.5 mg total) by nebulization every 6 (six) hours as needed for Wheezing. 360 mL 2 12/21/19 25 Active bimatoprost (LUMIGAN) 0.03 % ophthalmic solutionIndicati ons:Glaucoma, unspecified glaucoma type, unspecified laterality Place 1 drop into both eyes nightly at bedtime. 7.5 mL 5 12/24/19 24 025 Discontin ued(Reord er) furosemide (LASIX) 20 MG tabletIndication s:Leg swelling Take 1 tablet (20 mg total) by mouth daily. 90 tablet 1 12/24/19 24 025 Discontin ued(Reord er) tretinoin (RETIN-A) 0.1 % creamIndications :Other acne Apply topically nightly at bedtime. 45 g 2 12/24/19 24 025 Discontin ued(Reord er) baclofen (LIORESAL) 10 MG tabletIndication s:Muscle spasm TAKE 1 TABLET BY MOUTH EVERY DAY IN THE EVENING NEEDED 90 tablet 1 12/24/19 24 025 Discontin ued(Ineff ective) vitamin D3, cholecalciferol, 1.25 mg capsuleIndicatio ns:Vitamin D deficiency TAKE 1 CAPSULE BY MOUTH ONE TIME PER WEEK 12 capsule 3 12/24/19 24 025 Discontin ued(Reord er) montelukast (SINGULAIR) 10 MG tabletIndication s:Allergic rhinitis, unspecified seasonality, unspecified trigger Take 1 tablet (10 mg total) by mouth nightly at bedtime. 90 tablet 3 12/24/19 24 025 Discontin ued(Reord er) clotrimazole-bet amethasone (LOTRISONE) creamIndications :Lichen sclerosus of female genitalia Apply topically 2 (two) times daily. 45 g 3 12/24/19 24 025 Discontin ued(Reord er) famotidine (PEPCID) 40 MG tabletIndication s:Gastroesophage al reflux disease, unspecified whether esophagitis present Take 1 tablet (40 mg total) by mouth 2 (two) times daily. 180 tablet 1 12/24/19 24 025 Discontin ued(Reord er) pantoprazole EC (PROTONIX) 40 MG tabletIndication s:Gastroesophage al reflux disease, unspecified whether esophagitis present Take 1 tablet (40 mg total) by mouth daily. 90 tablet 3 12/24/19 24 025 Discontin ued(Reord er) albuterol sulfate HFA 108 (90 Base) MCG/ACT inhalerIndicatio ns:Chronic bronchitis, unspecified chronic bronchitis type (CMS/HCC HHS/HCC) inhale 2 puffs by mouth every 4 hours as needed for wheezing 18 g 6 04/11/20 24 025 Discontin ued(Reord er) cetirizine-pseud oephedrine ER (ZYRTEC-D) 5mg-120mg 12 hr tabletIndication s:Allergic rhinitis, unspecified seasonality, unspecified trigger Take 1 tablet by mouth 2 (two) times daily as needed for Allergies or Rhinitis. 28 tablet 06/27/20 24 025 Discontin ued(Reord er) traMADol (ULTRAM) 50 MG tabletIndication s:Other chronic pain TAKE 1 TABLET BY MOUTH EVERY 6 HOURS NEEDED FOR PAIN 120 tablet 09/23/20 24 025 Discontin ued(Reord er) fluconazole (DIFLUCAN) 150 MG tabletIndication s:Vaginal yeast infection TAKE ONE TABLET BY MOUTH A ONE-TIME DOSE MAY REPEAT IN 72 HOURS FOR CONTINUED SYMPTOMS 2 tablet 11/08/19 25 025 Discontin ued(Thera py completed ) zolpidem (AMBIEN) 10 MG tabletIndication s:Primary insomnia TAKE 1 TABLET BY MOUTH NIGHTLY NEEDED FOR SLEEP 90 tablet 11/08/19 25 025 Discontin ued(Reord er) Active Problems Problem Noted Date Diagnosed Date Postmenopausal 12/12/2024 Leg swelling 12/24/2023 Glaucoma, unspecified glaucoma type, unspecified laterality 12/24/2023 Other acne 12/24/2023 Fibromyalgia 01/02/2023 Muscle spasm 01/02/2023 Polyarthralgia 01/02/2023 Double vision 09/17/2022 Memory loss 09/17/2022 Depression, unspecified depression type 09/17/20 Thyroid nodule 09/17/2022 Allergic rhinitis, unspecifi ed seasonality, unspecified trigger 01/14/2021 Leukocytes in urine 11/21/2019 Hiatal hernia 11/21/2019 Tremors of nervous system 10/09/2019 Muscle spasms of both lower extremities 08/17/20 19 Neuropathy 08/17/2019 Esophagitis 02/28/2019 Liver lesion 02/28/2019 LAURYN (obstructive sleep apnea) 02/28/2019 Hypocalcemia 02/28/2019 Seasonal allergies 02/28/2019 Vitamin D deficiency 02/25/2019 Iron deficiency anemia, unsp ecified iron deficiency anemia type 02/25/2019 Gastroesophageal reflux dise ase, unspecified whether esophagitis present 02/25/2019 Folic acid deficiency 02/25/2019 Other chronic pain 02/25/2019 Lichen sclerosus of female genitalia 02/25/2019 Elevated glucose 02/25/2019 Primary insomnia 02/25/2019 Anxiety 02/25/2019 Essential hypertension 02/25/2019 Chronic bronchitis, unspecif ied chronic bronchitis type ([facility]) 02/25/2019 Hyperlipidemia 02/22/2019 Resolved Problems Problem Noted Date Diagnosed Date Resolved Date Recurrent urinary tract infection 01/02/2023 06/27/2024 Vision changes 09/17/2022 06/27/2024 Urinary frequency 09/17/2022 06/27/2024 Right lower quadrant abdominal pain 07/12/2021 09/15/2022 Rash and nonspecific skin eruption 07/12/2021 06/27/2024 Ear itching 01/14/2021 07/12/2021 Screening for colon cancer 01/14/2021 0 01/21/2021 Right upper quadrant abdominal pain 11/21/2019 09/15/2022 Flank pain 11/21/2019 09/15/2022 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 COMMISSIONER Telemedicine [facility] [address] [phone] Diane Thomas FNP Cough; Sore Throat; Congestion; Fever (99.6) 12/21/2024 Travel 12/14/2024 Telephone [facility] Internal [address] [phone] Diane Thomas FNP Radiology Results 12/13/2024 Telephone [facility] Internal [address] [address] Diane Thomas FNP Prior Authorization (Lidocaine (lidoderm) 4% patches. ) 12/13/2024 Telephone [facility] Internal [address] [phone] Diane Thomas FNP Prior Authorization (Tretinoin (Retin-A) 0.1% cream) 12/12/2024 11:00 AM U.S. COMMISSIONER Office Visit [facility] Internal [address] [phone] Diane Thomas FNP Back Pain (Lower back pain. The patient states the pain comes on quickly and lasts about 4 days. She states she has used a Tens unit and lidocaine lotion. ) 12/12/2024 - 12/12/2024 11:59 PM U.[place]. COMMISSIONER Hospital Encounter [facility] [address] [place] [address] Diane Thomas FNP Discharge Disposition: Home or Self Care (Routine Discharge) 12/12/2024 Travel 11/23/2024 Scan HEALTH INFO SR[facility]CS Scanned, [facility] Mammogram (SCAN); Ultrasound (SCAN) from Last 3 Months Immunizations Name Administration Dates Next Due Arexvy Respiratory Syncytial Virus (RSV, adjuvanted) 0.5 mL, PF 11/11/2023 FLUAD (IIV, Trivalent, 0.5 M L Pre-filled Syringe) 09/09/2024 Fluzone High Dose - >Age 65 (Prefilled Syringe) 08/07/2022,07/17/2021,06/16/2020,2018,08/14/2018,08/12/2018 Influenza Adult (Generic) 08/06/2023,03/2017,08/21/2015,2012,08/02/2012 MODERNA COVID-19 (12+) MRNA, LNP-S, PF, 100 MCG/ 0.5 ML DOSE 12/27/2020,11/29/2020 MODERNA COVID-19 (STEM [employer]ICK KRYS), MRNA, LNP-S, PF, 50 MCG/ 0.25 ML DOSE 08/29/2021 Pneumococcal (Generic) 11/21/2012 Pneumococcal (Pneumovax 23) 08/18/2019 Pneumococcal (Prevnar 13) 08/14/2018,08/12/2018 Pneumococcal Vaccine 11/21/2012 Shingrix 03/07/2024,01/01/2024 Family History Medical History Relation Comments Alcohol Abuse Father Cancer Father Heart Maternal Grandfather COPD Mother Hypertension Mother Heart Paternal Grandfather ALS Sister Cancer Sister Kidney CA Relation Status Comments Father (Age 65) Maternal Grandfather Maternal Grandmother (Age 96) Mother Paternal Grandfather Sister Social History Tobacco Use Types Packs/Day Years Used Date Smoking Tobacco: Former Cigarettes 1 15 0 07/12/1986 - 07/12/2001 Passive Smoke Exposure: Past Smokeless Tobacco: Never Tobacco Cessation:Counseling Given: Not Answered Alcohol Use Standard Drinks/Week Comments Not Currently [...] Sex Assigned at Female 12/12/2024 11:16 AM U.S. COMMISSIONER Legal Sex Female 12:12 PM CDT Gender Identity Female 12/12/2024 11:16 AM U.[place]. COMMISSIONER Sexual Orientation Not on file Last Filed Vital Signs Vital Sign Reading Time Taken Comments Blood Pressure 124/78 12/12/2024 11:20 AM U.S. COMMISSIONER Pulse 74 12/12/2024 11:20 AM U.S. COMMISSIONER Temperature 36.5 C (97.7 F) 12/12/2024 11:20 AM U.S. COMMISSIONER Respiratory Rate 16 12/12/2024 11:20 AM U.S. COMMISSIONER Oxygen Saturation 98% 12/12/2024 11:20 AM U.S. COMMISSIONER Inhaled Oxygen Concentration - - Weight 82.4 kg (181 lb 9.6 oz) 12/12/2024 11:20 AM U.S. COMMISSIONER Height 154.9 cm (5' 1 ) 12/12/2024 11:20 AM U.S. COMMISSIONER Body Mass Index 34.31 12/12/2024 11:20 AM U.S. COMMISSIONER Plan of Treatment Health Maintenance Due Date Last Done Comments Hepatitis C 1973 Annual Medicare Wellness Visit 2018 DTaP, Tdap and Td Vaccines (1 - Tdap) 12/24/2024 Postponed from 1972 (No Insurance Coverage) Colorectal Cancer Screening FIT-DNA (3 Years) 12/12/2025 07/31/2021 Postponed from 07/31/2024 (Patient Refused) COVID-19 Vaccine ( season) 2025 09/09/2024, 08/06/2023, 08/07/2022, Additional history exists Postponed from 11/04/2024 (Future Appointment) Mammogram Screening 11/23/2026 11/23/2024, 09/02/2023, 08/20/2022, Additional history exists Colorectal Cancer Screening Colonoscopy (10 Years) Discontinued 06/13/2011, 09/23/2005 Dexa Scan (General) Completed 03/29/2019 Pneumococcal Vaccine: 65+ Years Completed 08/18/2019, 08/14/2018, 08/12/2018 RSV Immunization or 60+ Years Completed 11/11/2023 Zoster Vaccines Completed 03/07/2024, 01/01/2024 Influenza Adult Completed 09/09/2024, 03/2023, 08/07/2022, Additional history exists PHQ-2 (Physician [place]) Completed 12/21/2024 Meningococcal B Vaccine Aged Out No l onger eligible based on patient's age to complete this topic Meningococcal Vaccine Aged Out No ceci macario eligible based on patient's age to complete this topic RSV Immunizations Under 20 Months Aged Out No longer eligible based on patient's age to complete this topic Procedures Procedure Name Priority Date/Time Associated Diagnosis Comments URINE BACTERIA CULTURE Routine 12/12/2024 12:16 PM U.S. COMMISSIONER Leukocytes in urine XR LUMB SPINE 3V Routine 12/12/2024 12:0 9 PM U.S. COMMISSIONER Chronic right-sided low back pain without sciatica MG/PCCL UDS W CONF Routine 12/12/2024 11 :10 AM U.[place]. COMMISSIONER Encounter for long-term (current) use of medications URINALYSIS AUTO DIP Routine 12/12/2024 Chronic right-sided low back pain without sciatica MAMMOGRAM GENERIC (SCAN ORDER) 11/23/2024 ULTRASOUND GENERIC (SCAN ORDER) 11/23/2024 COLOGUARD (EXACT SCIENCE) Routine 07/31/2021 9:00 AM CDT Screening for colon cancer BONE DENSITY GENERIC (SCAN ORDER) Routine 03/29/2019 COLONOSCOPY GENERIC (SCAN ORDER) Routine 06/13/2011 from Last 3 Months or Most Recently Relevant to Health Maintenance Results * URINE BACTERIA CULTURE (12/12/2024 12:16 PM U.S. COMMISSIONER) SPEC DESCRIPTION URINE VOIDED 12/12/2024 7:03 PM U.S. COMMISSIONER [facility] SPECIAL REQUESTS NO SPECIAL REQUEST 12/12/2024 7:03 PM U.S. COMMISSIONER [facility] CULTURE RESULT FEW CONTAMINANTS 12/03 8:19 AM U.S. COMMISSIONER [facility] URINE SPECIMEN FROM URETHRA / Unknown 12/12/2024 12:16 PM U.S. COMMISSIONER 12/12/2024 8:52 PM U.S. COMMISSIONER us Diane Thomas GEOGRAPHY TEACHER MICROBIOLOGY - GENERAL ORDERAB LES Final Result [facility] [address] [place] [address], [id number] * XR LUMB SPINE 3V (12/12/2024 12:09 PM U.S. COMMISSIONER) Anatomical Region Laterality Modality Spine Radiographic Tonja ging 12/13/2024 7:03 AM U.S. COMMISSIONER Impressions 12/13/2024 7:03 AM U.S. COMMISSIONER IMPRESSION: No acute findings Ordered By: DIANE THOMAS Interpreted By: Jose Scruggs MD, 12/13/2024 7:03 AM Narrative 12/13/2024 7:03 AM U.S. COMMISSIONER [facility] [place] [address] 3 VIEWS OF THE LUMBAR SPINE Clinical History: Low back pain Comparison: None 3 views of the lumbar spine demonstrate no evidence of fracture. Overall alignment is within normal limits.. The vertebral body heights are symmetric and within normal limits throughout. The intervertebral disc heights demonstrate symmetry with a normal overall appearance. The facets are normally aligned. The spinous processes and transverse processes appear normal. Dense calcifications are noted within the infrarenal aorta Procedure Note Jose Scruggs MD - 12/13/2024 [facility] Family and Internal [facility] [place] [address] 3 VIEWS OF THE LUMBAR SPINE Clinical History: Low back pain Comparison: None 3 views of the lumbar spine demonstrate no evidence of fracture. Overallalignment is within normal limits.. The vertebral body heights aresymmetric and within normal limits throughout. The intervertebral discheights demonstrate symmetry with a normal overall appearance. The facetsare normally aligned. The spinous processes and transverse processesappear normal. Dense calcifications are noted within the infrarenalaorta IMPRESSION: No acute findings Ordered By: DIANE THOMAS Interpreted By: Jose Scruggs MD, 12/13/2024 7:03 AM Diane Thomas GEOGRAPHY TEACHER GENERAL IMAGING Final Result * (ABNORMAL) MG/PCCL UDS W CONF (12/12/2024 11:10 AM U.S. COMMISSIONER) RESULT SUMMARY [facility] Comment: Prescribed Prescribed Not Prescribed Consistent Inconsistent Inconsistent Tramadol PRESCRIBED DRUG 1 (U) Tramadol [facility] FENTANYL SCREEN (U) NEGATIVE <0.5 ng/mL [facility] MORPHINE (U) NEGATIVE <10 ng/mL [facility] DESMETHYLTRAMADOL (U) 2,069(H) <100 ng/mL [facility] DESMETHYLTRAMADOL MEDMATCH (U) CONSISTENT [facility] TRAMADOL (U) 4,606(H) <100 ng/mL [facility] TRAMADOL (MEDMATCH) CONSISTENT [facility] TRAMADOL COMMENTS [facility] [place] Comment:See Tramadol Notes, LDT Notes AMPHETAMINES PM NEGATIVE <500 ng/mL [facility] BARBITUR[facility] PM (U) NEGATIVE <300 ng/mL [facility] BENZODIAZEPINES PM (U) NEGATIVE <100 ng/mL [facility] COCAINE METABOLITE PM (U) NEGATIVE <150 ng/mL [facility] [employer] [facility] MARIJUANA METABOLITE PM (U) NEGATIVE <20 ng/mL [facility] [employer] [facility] METHADONE PM (U) NEGATIVE <100 ng/mL [facility] [employer] [facility] OPIATES PM (U) NEGATIVE <100 ng/mL [facility] OXYCOD[facility] PM (U) NEGATIVE <100 ng/mL [facility] [place] [facility] CREATININE RANDOM (U) 31.1 > or = 20.0 mg/dL [facility] [employer] [facility] pH PM (U) 6.8 4.5 - 9.0 [facility] [employer] [facility] OXIDANT NEGATIVE <200 mcg/mL [facility] NOTE [facility] Comment: This drug testing is for medical treatment only. Analysis was performed as non-forensic testing and these results should be used only by healthcare providers to render diagnosis or treatment, or to monitor progress of medical conditions. Tramadol Notes: Tramadol, Desmethyltramadol detected is consistent with the use of the drug Tramadol. LDT Notes: Confirmation tests were developed and their analytical performance characteristics have been determined by [facility]. It has not been cleared or approved by the FDA. This assay has been validated pursuant to the CLIA regulations and is used for clinical purposes. medMATCH(R) enables providers to identify if drug use is consistent or inconsistent with a corresponding prescribed medication(s) list. Healthcare Providers needing Interpretation assistance, please contact us at [phone] ( ) M-F, 8am to 10pm EST URINE SPECIMEN / Unknown 12/12/2024 11:10 AM U.S. COMMISSIONER 12/13/2024 1:15 AM U.S. COMMISSIONER Narrative Resulting Agency Comment Performing Organization Information: Site ID: [place] Name: [employer] Address: [address] [place] [address] Director: Nicanor Monahan Site ID: [place] Name: [facility] Address: [address] [place] [address] Director: Peg Hassan MD us Diane Thomas GEOGRAPHY TEACHER URINE ORDERABLES Final Result Performing Organization Address City/State/[facility] Co de Phone Number [facility] [address] [facility] [place] [address], [facility] [place] [address] [place] [address] * (ABNORMAL) URINALYSIS AUTO DIP (12/12/2024) COLOR (U) YELLOW YELLOW [facility] TRANSPARENCY CLOUDY(A) CLEAR [facility] GLUCOSE (U) NEGATIVE NEGATIVE MG/DL [facility] BILIRUBIN (U) NEGATIVE NEGATIVE [facility] KETONES MG/DL (U) NEGATIVE NEGATIVE MG/DL [facility] SPECIFIC GRAVITY (U) 1.010 1.001 - 1.035 [facility] BLOOD (U) TRACE (Hemolyzed)( A) NEGATIVE [facility] U PH 7.0 5.0 - 9.0 [facility] PROTEIN (U) NEGATIVE NEGATIVE mg/dL [facility] UROBILINOGEN 0.2 0.2 - 1.0 EU/dL = mg/dL [facility] NITRITES NEGATIVE NEGATIVE MG/DL [facility] LEUKOCYTES (U) 2+ (MODERATE)(A ) NEGATIVE [facility] URINE SPECIMEN OBTAINED BY CLEAN CATCH PROCEDURE / Unknown 12/12/2024 us Diane Kilzer GEOGRAPHY TEACHER URINE ORDERABLES Final Result [facility] [address] [place] [address], [place] * MAMMOGRAM GENERIC (SCAN ORDER) (11/23/2024) Anatomical Region Laterality Modality Other 11/23/2024 [facility] Scanned SCANNING Final Resu lt * ULTRASOUND GENERIC (SCAN ORDER) (11/23/2024) Anatomical Region Laterality Modality Other 11/23/2024 us [facility] Scanned SCANNING Final Resu lt * COLOGUARD (EXACT SCIENCE) (07/31/2021 9:00 AM CDT) COLOGUARD RESULT Negative Negative [facility] (CLIA #:[id number]) Comment: NEGATIVE TEST RESULT. A negative Cologuard result indicates a low likelihood that a colorectal cancer (CRC) or advanced adenoma (adenomatous polyps with more advanced pre-malignant features) is present. The chance that a person with a negative Cologuard test has a colorectal cancer is less than 1 in 1500 (negative predictive value >99.9%) or has an advanced adenoma is less than 5.3% (negative predictive value 94.7%). These data are based on a prospective cross-sectional study of 10,000 individuals at average risk for colorectal cancer who were screened with both Cologuard and colonoscopy. (Kaylie Bhat al, N Engl J Med 2014;370(14):9907-6733) The normal value (reference range) for this assay is negative. COLOGUARD RE-SCREENING RECOMMENDATION: Periodic colorectal cancer screening is an important part of preventive healthcare for asymptomatic individuals at average risk for colorectal cancer. Following a negative Cologuard result, the [place] [employer] and [place] Multi-Society Task Force screening guidelines recommend a Cologuard re-screening interval of 3 years. References: [place] Guideline for Colorectal Cancer Screening: https://www.cancer.org/cancer/vmdoy-pjyqch-fqolvf/amjcfyqwr-saznpnrpw-ccrkqok/ac s-rec ommendations.html.; Leroy DK, Abdi CR, Jolanta BerryK, Colorectal Cancer Screening: Recommendations for Physicians and Patients from the U.S. Multi-Society Task Force on Colorectal Cancer Screening , Am J Gastroenterology 2017; 112:0334-4275. TEST DESCRIPTION: Composite algorithmic analysis of stool DNA-biomarkers with hemoglobin immunoassay. Quantitative values of individual biomarkers are not reportable and are not associated with individual biomarker result reference ranges. Cologuard is intended for colorectal cancer screening of adults of either sex, 45 years or older, who are at average-risk for colorectal cancer (CRC). Cologuard has been approved for use by the U.S. FDA. The performance of Cologuard was established in a cross sectional study of average-risk adults aged 50-84. Cologuard performance in patients ages 45 to 49 years was estimated by sub-group analysis of near-age groups. Colonoscopies performed for a positive result may find as the most clinically significant lesion: colorectal cancer [4.0%], advanced adenoma (including sessile serrated polyps greater than or equal to 1cm diameter) [20%] or non- advanced adenoma [31%]; or no colorectal neoplasia [45%]. These estimates are derived from a prospective cross-sectional screening study of 10,000 individuals at average risk for colorectal cancer who were screened with both Cologuard and colonoscopy. (Kaylie Redd et al, N Engl J Med 2014;370(14):0423-8832.) Cologuard may produce a false negative or false positive result (no colorectal cancer or precancerous polyp present at colonoscopy follow up). A negative Cologuard test result does not guarantee the absence of CRC or advanced adenoma (pre-cancer). The current Cologuard screening interval is every 3 years. ([place] [employer] and U.S. Multi-Society Task Force). Cologuard performance data in a 10,000 patient pivotal study using colonoscopy as the reference method can be accessed at the following location: www.[employer]/results. Additional description of the Cologuard test process, warnings and precautions can be found at www.[employer].com. Stool specimen (specimen) STOOL SPECIMEN / Unknown 07/31/2021 9:00 AM CDT 08/02/2021 1:40 PM CDT us Diane Rin GEOGRAPHY TEACHER BODY FLUIDS AND STOOLS ORDERAB LES Final Result [facility] ([facility]) [address] [place] [address], [place] (CLIA #:[id number]) [address] [place] [address] * BONE DENSITY (03/29/2019) Anatomical Region Laterality Modality Other us Documents Scanned SCANNING Edited Result - Final * COLONOSCOPY (06/13/2011) us Documents Scanned SCANNING Edited Result - Final from Last 3 Months or Most Recently Relevant to Health Maintenance Insurance [employer] Care Teams Tub Rider Relationship Specialty Start Date End Date Diane Thomas FNP [address] [place] [address] PCP - General Nurse Practitioner Family 02/22/19
--- OUTSIDE RECORDS SUMMARY | 2024-12-22 06:56 | XMS_ITS | Encounter Summary ---
Author Organization [facility] Address [address] [place] [address] Care Team Providers Care Surgical Services Manager Name Role Phone Deena Gar Primary Care Provider [phone] Encounter Details Date Type Department Care Team (Late st Contact Info) Description 03/01/2019 Repeatitt Message Enc [facility] Medical Group Family & Internal Medicine [facility] [address] [place] [address] Deena Gar FNP [facility] [place], [place] [id number] RE: FW: Question Social History Tobacco Use Types Packs/Day Years Used Date Smoking Tobacco: Former Cigarettes 1 25 Smokeless Tobacco: Never Alcohol Use Standard Drinks/Week Comments No 0 (1 standard drink = 0.6 oz pur e alcohol) AUDIT-C Answer Date Recorded Frequency of Alcohol Consumption Never 02/22/2019 Average Number of Drinks Not on file 019 Frequency of Binge Drinking Not on file 02/01 PHQ-2 Answer Date Recorded PHQ-2 Score 2 02/28/2019 Comments No Sex and Gender Information Value Date Recorded Sex Assigned at Female 12/12/2024 11:16 AM SIZING END BANDER Legal Sex Female 12:12 PM CDT Gender Identity Female 12/12/2024 11:16 AM SIZING END BANDER Sexual Orientation Not on file documented as of this encounter Plan of Treatment Not on file documented as of this encounter Visit Diagnoses Not on filedocumented in this encounter Additional Health Concerns Assessment Noted Time PHQ-9 Depression Total Score: 8 02/29/20 19 9:07 AM CDT documented as of this encounter Care Teams Surgical Services Manager Relationship Specialty Start Date End Date Deena Gar FNP [address] [place] [address] PCP - General Nurse Practitioner Family 02/22/19 documented as of this encounter
--- OUTSIDE RECORDS SUMMARY | 2024-12-22 06:56 | XMS_ITS | Continuity of Care Document ---
Author Organization [facility] Address [address] [place] [address] Phone Care Team Providers Care Data Warehouse Specialist Name Role Phone Ortega OD, John Unavailable Unavailable Advance Directives Directive Yes / No Effective Date File Name No Information Encounters Encounter Description Practice Location Reason(s) For Visit Diagnoses Date Provider Providers Copied on Encounter [facility], [address], [place], [place], [id number], [place] tel:[phone] [facility] No Information 7-200 2 Ortega OD John. [address] , [address], [place], [address], [place]. tel:[phone] Family History Family Member Type Diagnosis Age At Onset No Information Payers Payer name Insurance type Covered libertarian ID Authoriza tion(s) No Information Social History Type Description Quantity Date Captured Comments Sex Female Smoking Status No Information Chief Complaint And Reason For Visit No Information Reason For Referral Reason For Referral No Information History Of Present Illness Encounter Date Complaint History Of Prese nt Illness No Information Functional Status Date Functional Assessmen t No Information Instructions Date Instruction Additional Infor mation No Information Assessments Type Assessment Date No Information Patient Care Teams Name Effective Dates (start - stop) Status Members No Information
--- OUTSIDE RECORDS SUMMARY | 2024-12-22 06:56 | XMS_ITS | Encounter Summary ---
Author Organization [facility] Address [address] [place] [address] Care Team Providers Care Hydrogen Power Plant Engineer Name Role Phone Deena Gar Primary Care Provider [phone] Encounter Details Date Type Department Care Team (Late st Contact Info) Description 04/29/2023 MyChart Message Enc [facility] Medical [facility] - [facility] [address] [place], [place] [id number] [facility], [facility] Provider Air Quality Message Social History Tobacco Use Types Packs/Day Years Used Date Smoking Tobacco: Former Cigarettes 1 15 0 07/12/1986 - 07/12/2001 Passive Smoke Exposure: Past Smokeless Tobacco: Never Alcohol Use Standard Drinks/Week Comments Yes 1.7 (1 standard drin k = 0.6 oz pure alcohol) Only on occasion when dining out not weekly or daily AUDIT-C Answer Date Recorded Frequency of Alcohol Consumption Never 02/22/2019 Average Number of Drinks Not on file 019 Frequency of Binge Drinking Not on file 02/01 PHQ-2 Answer Date Recorded Patient Health Questionnaire-2 Score 1 01/02/2023 Comments No Sex and Gender Information Value Date Recorded Sex Assigned at Female 12/12/2024 11:16 AM JIG GRINDER SET UP OPERATOR Legal Sex Female 12:12 PM CDT Gender Identity Female 12/12/2024 11:16 AM JIG GRINDER SET UP OPERATOR Sexual Orientation Not on file documented as of this encounter Plan of Treatment Not on file documented as of this encounter Visit Diagnoses Not on filedocumented in this encounter Additional Health Concerns Assessment Noted Time PHQ-9 Depression Total Score: 4 01/03/20 23 2:29 PM JIG GRINDER SET UP OPERATOR documented as of this encounter Care Teams Hydrogen Power Plant Engineer Relationship Specialty Start Date End Date Deena Gar FNP [address] [place] [address] PCP - General Nurse Practitioner Family 02/22/19 documented as of this encounter
--- OUTSIDE RECORDS SUMMARY | 2024-12-22 06:56 | XMS_ITS | Encounter Summary ---
Author Organization [facility] Address [address] [place] [address] Care Team Providers Care Contract Assistant Name Role Phone Deena Gar Primary Care Provider [phone] Encounter Details Date Type Department Care Team (Late st Contact Info) Description 12/14/2019 Close.iot Message Enc [facility] Medical Group Family & Internal Medicine [facility] [address] [place] [address] Deena Gar FNP [facility] [place] [address] RE: Referral Request Social History Tobacco Use Types Packs/Day Years [...] PHQ-2 Answer Date Recorded PHQ-2 Score 2 11/21/2019 Comments No Sex and Gender Information Value Date Recorded Sex Assigned at Female 12/12/2024 11:16 AM SUPERVISOR LEAF SPRING FABRICATION Legal Sex Female 12:12 PM CDT Gender Identity Female 12/12/2024 11:16 AM SUPERVISOR LEAF SPRING FABRICATION Sexual Orientation Not on file documented as of this encounter Plan of Treatment Not on file documented as of this encounter Visit Diagnoses Not on filedocumented in this encounter Additional Health Concerns Assessment Noted Time PHQ-9 Depression Total Score: 6 11/21/19 20 11:15 AM SUPERVISOR LEAF SPRING FABRICATION documented as of this encounter Care Teams Contract Assistant Relationship Specialty Start Date End Date Deena Gar FNP [address] [place] [address] PCP - General Nurse Practitioner Family 02/22/19 documented as of this encounter
--- OUTSIDE RECORDS SUMMARY | 2024-12-22 06:56 | XMS_ITS | Encounter Summary ---
Author Organization [facility] Address [address] [place] [address] Care Team Providers Care Python Django Developer Name Role Phone Deena Gar Primary Care Provider [phone] Encounter Details Date Type Department Care Team (Late st Contact Info) Description 03/01/2019 FancyBoxt Message Enc [facility] Medical Group Family & Internal Medicine [facility] [address] [place] [address] Deena Gar FNP [facility] [place], [place] [phone] RE: FW: Question Social History Tobacco Use [...] Sex Assigned at Female 12/12/2024 11:16 AM STOCKROOM WORKER Legal Sex Female 12:12 PM CDT Gender Identity Female 12/12/2024 11:16 AM STOCKROOM WORKER Sexual Orientation Not on file documented as of this encounter Plan of Treatment Not on file documented as of this encounter Visit Diagnoses Not on filedocumented in this encounter Additional Health Concerns Assessment Noted Time PHQ-9 Depression Total Score: 8 02/29/20 19 9:07 AM CDT documented as of this encounter Care Teams Python Django Developer Relationship Specialty Start Date End Date Deena Gar FNP [address] [place] [address] PCP - General Nurse Practitioner Family 02/22/19 documented as of this encounter
--- OUTSIDE RECORDS SUMMARY | 2024-12-22 06:56 | XMS_ITS | Encounter Summary ---
Author Organization [facility] Address [address] [place] [address] Care Team Providers Care Coding Team Lead Name Role Phone Deena Gar Primary Care Provider [phone] Encounter Details Date Type Department Care Team (Latest Contact Info) Description 12/21/2024 Travel Social History Tobacco Use Types Packs/Day Years [...] Sex Assigned at Female 12/12/2024 11:16 AM LAND SURVEYOR ASSISTANT Legal Sex Female 12:12 PM CDT Gender Identity Female 12/12/2024 11:16 AM LAND SURVEYOR ASSISTANT Sexual Orientation Not on file documented as of this encounter Plan of Treatment Not on file documented as of this encounter Visit Diagnoses Not on filedocumented in this encounter Additional Health Concerns Assessment Noted Time PHQ-9 Depression Total Score: 18 024 11:24 AM CDT documented as of this encounter Care Teams Coding Team Lead Relationship Specialty Start Date End Date Deena Gar FNP [address] [place] [address] PCP - General Nurse Practitioner Family 02/22/19 documented as of this encounter
[2024-12-22 07:20] VITALS: BP 156/75; PULSE 108; RESP 20; TEMP 36.8; O2SAT 96
[2024-12-22 07:20] LABS: Basophils Percent Auto 0.3 % (0.2-1.2); Hematocrit 41.3 % (37.0-47.0); Hemoglobin 13.7 g/dL (12.0-15.0); Immature Granulocyte Absolute 0.06 K/mm3 (0.00-0.031); Immature Granulocyte Percent A 0.4 % (0-0.5); Lymphocytes Absolute Auto 0.67 K/mm3 (0.9-3.2); Lymphocytes Percent Auto 4.7 % (18.3-44.2); Mean Corpuscular HGB Conc 33.2 g/dl (32-36); Mean Corpuscular Hemoglobin 28.8 pg (26-34); Mean Corpuscular Volume 86.9 fl (80-100); Mean Platelet Volume 9.9 fl (7.4-10.4); Monocytes Absolute Auto 0.9 K/mm3 (0.1-0.6); Monocytes Percent Auto 6.4 % (2.6-8.5); Neutrophils Absolute Auto 12.5 K/mm3 (1.3-6.7); Neutrophils Percent Auto 88.2 % (45.5-73.1); Platelet Count Result 234 k/mm3 (150-375); Red Blood Count 4.75 M/mm3 (4.2-5.4); Red Cell Distribution Width 12.9 % (11.5-14.5); White Blood Count 14.2 K/mm3 (4.5-10.0)
[2024-12-22 07:28] LABS: Alanine Aminotransferase 46 U/L (6-35); Albumin Level 3.9 g/dL (3.5-5.1); Alkaline Phosphatase 118 U/L (38-126); Anion Gap 11 mmol/L (4-12); Aspartate Amino Transferase 81 U/L (14-36); Blood Urea Nitrogen 9 mg/dL (7-17); Calcium 8.9 mg/dL (8.4-10.2); Carbon Dioxide 24 mmol/L (22-30); Chloride 102 mmol/L (98-107); Estimated CRCL calculation 57 ml/min; Estimated Glomerular Filt Rate > 60; Glucose 128 mg/dL (65-110); Sodium 137 mmol/L (137-145)
[2024-12-22] MEDS: SODIUM CHLORIDE 0.9% IV 1,000 ML 999 ML IV CONT (07:29)
[2024-12-22] MEDS: KETOROLAC 15 MG/ML VIAL (*BKC) IV PUSH (07:29)
--- NOTE | 2024-12-22 07:31 | ED_ITS ---
HPI - SOB/Dyspnea General Chief Complaint: Shortness of Breath/Dyspnea Stated Complaint: Fever, congestion, sob Time Seen by Provider: 12/22/24 07:10 History of Present Illness HPI Narrative: Patient is a 69-year-old female who presents ER with flu-like syndrome. She has had sinus congestion home with loose cough over last 5 days. She has had increased fatigue. She had elevated fever of 103? F this morning that prompted her to come in. She wants to make sure she does not have sepsis. No known sick contacts. No vomiting. No other complaints. Related Data Home Medications ?Medication ?Instructions ?Recorded ?Confirmed ?Last Taken ?Type albuterol sulfate 90 mcg/actuation 90 mcg inhalation PRN PRN 10/11/20 08/12/21 Unknown History aerosol inhaler Shortness Of Breath Or Wheezing alprazolam 0.25 mg tablet 0.25 mg PO PRN PRN Anxiety 10/11/20 08/12/21 Unknown History benzonatate 100 mg capsule 100 mg PO PRN PRN Cough 10/11/20 08/12/21 Unknown History cholecalciferol (vitamin D3) 1,250 1,250 mcg PO WEEKLY 10/11/20 08/12/21 Unknown History mcg (50,000 unit) capsule montelukast 10 mg tablet 10 mg PO DAILY 10/11/20 08/12/21 Unknown History tramadol 50 mg tablet 50 mg PO PRN PRN Pain 10/11/20 08/12/21 Unknown History zolpidem 10 mg tablet 10 mg PO DAILY 10/11/20 08/12/21 Unknown History Allergies Allergy/AdvReac Type Severity Reaction Status Date / Time Quinolones Allergy Severe Hives Verified 12/22/24 06:55 Sulfa (Sulfonamide Allergy Intermediate Dry Mouth Verified 12/22/24 06:55 Antibiotics) levofloxacin AdvReac Severe Hives Verified 12/22/24 06:55 ipratropium AdvReac Intermediate SPIRIVA Verified 12/22/24 06:55 ALLERGY - NOT IN DRUG LISTING Review of Systems 2 Review of Systems: All systems reviewed & are unremarkable except as noted in HPI and below Constitutional: Constitutional: Reports no additional constitutional complaints ENT: Reports system reviewed and no additional complaints, except as documented Cardiovascular: Cardiovascular: Reports no additional cardiovascular complaints Respiratory: Respiratory: Reports no additional respiratory complaints [facility] Past Medical History Medical History (Updated 12/22/24 @ 08:23 by Rell Irby MD) High cholesterol Hypertension GERD (gastroesophageal reflux disease) History of asthma Surgical History Surgical History H/O: hysterectomy 1990 at [facility] History of bladder surgery Andres History of cholecystectomy Andres Family History Family History Mother Family history of chronic obstructive pulmonary disease Father Family history of pancreatic cancer Diabetes mellitus Sibling Family history of malignant neoplasm of kidney Family history of amyotrophic lateral sclerosis Family history of malignant neoplasm, Onset Age: 73 Grandparent Family history of heart disease in male family member before age 55 Other Family history of cardiovascular disease Hypertension Social History Social History (Updated 08/12/21 @ 10:59 by BETTIE Ramos) Smoking packs per day: 1 Smoking cigarettes per day: 20.0 Years smoked: 16 Smoking pack-years: 16.00 Smoking status: Former smoker Alcohol intake: current Living arrangements: with family Gender identity (if verbalized by the patient): Female Exam 2 Narrative: GENERAL: Well-appearing, well-nourished, and in no acute distress. HEAD: Normocephalic, atraumatic. CHEST: Clear to auscultation. No respiratory distress. HEART: Tachycardic regular. Normal peripheral pulses. ABDOMEN: Soft, nontender, nondistended. EXTREMITIES: Normal range of motion. No edema. SKIN: Warm, dry, no rash. NEURO: Alert and oriented x3. PSYCH: Normal mood and affect. Course Course Emergency Course: RSV, pneumonia on x-ray. Her PCP has prescribed her Augmentin and prednisone for home. Will add on azithromycin to taking conjunction with these medications. Patient has breathing treatments at she will use. Discharge. Vital Signs Vital signs: Vital Signs Temperature 98.2 F 12/22/24 07:20 Pulse Rate 108 H 12/22/24 07:20 Respiratory Rate 20 12/22/24 07:20 Blood Pressure 156/75 H 12/22/24 07:20 Pulse Oximetry 96 12/22/24 07:20 Oxygen Delivery Room Air 12/22/24 07:20 Temperature 98.0 F 12/22/24 08:11 Pulse Rate 94 12/22/24 08:11 Respiratory Rate 18 12/22/24 08:11 Blood Pressure 141/72 H 12/22/24 08:11 Pulse Oximetry 95 12/22/24 08:11 Oxygen Delivery Room Air 12/22/24 07:20 MDM - SOB/Dyspnea Lab Data 12/22/24 07:07 12/22/24 07:07 Labs: Lab Results 12/22/24 Range/Units 07:07 WBC 14.2 H (4.5-10.0) K/mm3 RBC 4.75 (4.2-5.4) M/mm3 Hgb 13.7 (12.0-15.0) g/dL Hct 41.3 (37.0-47.0) % MCV 86.9 (80-100) fl MCH 28.8 (26-34) pg MCHC 33.2 (32-36) g/dl RDW 12.9 (11.5-14.5) % Plt Count 234 (150-375) k/mm3 MPV 9.9 (7.4-10.4) fl Immature Gran % (Auto) 0.4 (0-0.5) % Neut % (Auto) 88.2 H (45.5-73.1) % Lymph % (Auto) 4.7 L (18.3-44.2) % Twiggs % (Auto) 6.4 (2.6-8.5) % Eos % (Auto) 0.0 (0-4.4) % Baso % (Auto) 0.3 (0.2-1.2) % Lymph # (Auto) 0.67 L (0.9-3.2) K/mm3 [place]gs # (Auto) 0.9 H (0.1-0.6) K/mm3 Eos # (Auto) 0.0 (0-0.3) K/mm3 Baso # (Auto) 0.0 (0.0-0.1) K/mm3 Abs Immat Gran (auto) 0.06 H (0.00-0.031) K/mm3 Absolute Neuts (auto) 12.5 H (1.3-6.7) K/mm3 Absolute Nucleated RBC 0.000 (0.0-0.012) K/mm3 Nucleated RBC % 0.0 (0.0-0.2) % Sodium 137 (137-145) mmol/L Potassium 4.0 (3.4-5.0) mmol/L Chloride 102 (98-107) mmol/L Carbon Dioxide 24 (22-30) mmol/L Anion Gap 11 (4-12) mmol/L BUN 9 (7-17) mg/dL Creatinine 0.76 (0.7-1.0) mg/dL Estim Creat Clear Calc 57 ml/min Estimated GFR > 60 (59 - ) Glucose 128 H (65-110) mg/dL Calcium 8.9 (8.4-10.2) mg/dL Total Bilirubin 1.0 (0.2-1.3) mg/dL AST 81 H (14-36) U/L ALT 46 H (6-35) U/L Alkaline Phosphatase 118 (38-126) U/L Total Protein 7.0 (6.3-8.2) g/dL Albumin 3.9 (3.5-5.1) g/dL Influenza A (RT-PCR) Negative (Negative) Influenza B (RT-PCR) Negative (Negative) RSV (RT-PCR) Positive A (Negative) SARS-CoV-2 RNA (RT-PCR) Negative (Negative) Imaging Data Radiologist's impression: ITS Impressions Chest X-Ray 12/22/24 07:55 Impression: Probable subtle right basilar pneumonia. Discharge Plan Discharge Clinical Impression: Pneumonia, Respiratory syncytial virus (RSV) Patient Disposition: Home, Self-Care Condition: Stable Instructions: RSV (Respiratory Syncytial Virus) Infection (ED) Additional Instructions: Please return to the emergency department if you develop severe and persistent chest pain, difficulty breathing, dizziness, leg swelling or if you are coughing up blood as these can be signs of a medical emergency. Please call your doctor for a follow up appointment to determine the need for further testing. Patient Language: Moldovan Prescriptions: New azithromycin 250 mg tablet See Rx Instructions .ROUTE .COMPLEX Qty: 6 0RF Rx Instructions: take 500 mg today (day 1), then 250 mg for 4 days (days 2-5) No Action tramadol 50 mg tablet 50 mg PO PRN PRN (Reason: Pain) alprazolam 0.25 mg tablet 0.25 mg PO PRN PRN (Reason: Anxiety) benzonatate 100 mg capsule 100 mg PO PRN PRN (Reason: Cough) montelukast 10 mg tablet 10 mg PO DAILY zolpidem 10 mg tablet 10 mg PO DAILY albuterol sulfate 90 mcg/actuation HFA aerosol inhaler 90 mcg INHALATION PRN PRN (Reason: Shortness Of Breath Or Wheezing) cholecalciferol (vitamin D3) 1,250 mcg (50,000 unit) capsule 1,250 mcg PO WEEKLY Follow-up/Referrals: MARTHA,ERMA CONTRERAS [Primary Care Provider] - 1 Week
--- OUTSIDE RECORDS SUMMARY | 2024-12-22 07:32 | XMS_ITS | Encounter Summary ---
Author Organization [facility] Address [address] [place] [address] Care Team Providers Care Assistant Attorney General Name Role Phone Deena Gar Primary Care Provider [phone] Reason for Referral * Medication Prior Authorization - Closed Specialty Diagnoses / Procedures Referred By Torie t Referred To Contact Diagnoses Wheezing Deena Gar FNP [address] [place] [address] Phone: tel: fax: Referral ID Status Reason Start Date Expiration Date Visits Re quested Visits Authorized [id number] Closed 1 1 FLEET MAINTENANCE MANAGER Reason for Visit * Reason Comments Cough Sore Throat Congestion Fever 99.6 Encounter Details Date Type Department Care Team (Late st Contact Info) Description 12/21/2024 10:40 AM AUTO FLEET MAINTENANCE MANAGER Telemedicine [facility] Medical Group Family & Internal Medicine [place] [address] [place] [address] Deena Gar FNP [facility] [place] [address] Cough; Sore Throat; Congestion; Fever (99.6) Social [...] Sex Assigned at Female 12/12/2024 11:16 AM AUTO FLEET MAINTENANCE MANAGER Legal Sex Female 12:12 PM CDT Gender Identity Female 12/12/2024 11:16 AM AUTO FLEET MAINTENANCE MANAGER Sexual Orientation Not on file documented as of this encounter Patient Instructions * Patient Instructions* DANI Reveles - 12/21/2024 10:40 AM AUTO FLEET MAINTENANCE MANAGER Take medication as prescribed You may continue to use bgyw-dyf-tjiocpc medications as needed for symptom relief Call for any questions or concerns Follow-up routinely, sooner if needed, especially if your symptoms do not improve over the next 48 hours FLEET MAINTENANCE MANAGER documented in this encounter Progress Notes * DANI Reveles - 12/21/2024 10:40 AM CSTSummary: Flulike symptoms with exposure, sinus sxs and wheezing Office Progress Note Reason for Visit: Cough, Sore Throat, Congestion, and Fever (99.6) I introduced and identified myself, received verbal consent from the patient to proceed with this virtual visit and made the patient aware that the same confidentiality and health information tech practices apply. The patient confirmed at the start of this visit that they are completing this visit from Home, currently located in the [facility] [13], a state in which I am licensed to practice. I completed the virtual visit from: [facility] FAMILY [facility] [address] [address] Dept: [phone] Dept . The following technology was used [...] for influenza and they live in the [facility]. She has been using nbkq-uth-vvcjjqa medications as needed for symptom relief She [...] congested during virtual visit) present. Mouth/Throat: Lips: [place]. Mouth: Mucous membranes are moist. Eyes: General: [...] an antiviral and so she will continue whdq-dhp-drubnna medications as needed for symptom relief We discussed resting and keeping hydrated Following up routinely, sooner if needed 2. Flu-like symptoms She is past the point of treatment with an antiviral and so she will continue dzky-yqe-xbiyazo medications as needed for symptom relief We [...] not an admission. PCP: DANI MARY 12/21/2024 FLEET MAINTENANCE MANAGER documented in this encounter Plan of Treatment [...] documented as of this encounter Care Teams Assistant Attorney General Relationship Specialty Start Date End Date Deena Gar FNP [address] [place] [address] PCP - General Nurse Practitioner Family 02/22/19 documented as of this encounter
--- OUTSIDE RECORDS SUMMARY | 2024-12-22 07:32 | XMS_ITS | Encounter Summary ---
Author Organization [facility] Address [address] [place] [address] Care Team Providers Care Varnish Finisher Name Role Phone Deena Gar Primary Care Provider [phone] Encounter Details Date Type Department Care Team [...] Sex Assigned at Female 12/12/2024 11:16 AM STRANDING SUPERVISOR Legal Sex Female 12:12 PM CDT Gender Identity Female 12/12/2024 11:16 AM STRANDING SUPERVISOR Sexual Orientation Not on file documented as of this encounter Plan of Treatment Not on file documented as of this encounter Visit Diagnoses Not on filedocumented in this encounter Additional Health Concerns Assessment Noted Time PHQ-9 Depression Total Score: 18 024 11:24 AM CDT documented as of this encounter Care Teams Varnish Finisher Relationship Specialty Start Date End Date Deena Gar FNP [address] [place] [address] PCP - General Nurse Practitioner Family 02/22/19 documented as of this encounter
--- OUTSIDE RECORDS SUMMARY | 2024-12-22 07:32 | XMS_ITS | Encounter Summary ---
Author Organization [facility] Address [address] [place] [address] Care Team Providers Care Production Manager Name Role Phone Deena Gar Primary Care Provider [phone] Encounter Details Date Type Department Care Team (Late st Contact Info) Description 12/14/2019 Sustainability Roundtablet Message Enc [facility] Medical Group Family & Internal Medicine [facility] [address] [place] [address] Deena Gar FNP [facility] [place] [address] RE: Referral Request Social History Tobacco Use [...] Sex Assigned at Female 12/12/2024 11:16 AM NURSING ATTENDANT Legal Sex Female 12:12 PM CDT Gender Identity Female 12/12/2024 11:16 AM NURSING ATTENDANT Sexual Orientation Not on file documented as of this encounter Plan of Treatment Not on file documented as of this encounter Visit Diagnoses Not on filedocumented in this encounter Additional Health Concerns Assessment Noted Time PHQ-9 Depression Total Score: 6 11/21/19 20 11:15 AM NURSING ATTENDANT documented as of this encounter Care Teams Production Manager Relationship Specialty Start Date End Date Deena Gar FNP [address] [place] [address] PCP - General Nurse Practitioner Family 02/22/19 documented as of this encounter
--- OUTSIDE RECORDS SUMMARY | 2024-12-22 07:32 | XMS_ITS | Encounter Summary ---
Author Organization [facility] Address [address] [place] [address] Care Team Providers Care Photography Intern Name Role Phone Deena Gar Primary Care Provider [phone] Encounter Details Date Type Department Care Team (Late st Contact Info) Description 03/01/2019 Lobera Cigarst Message Enc [facility] Medical Group Family & Internal Medicine [facility] [address] [place] [address] Deena Gar FNP [facility] [place], [place] [phone] RE: FW: Question Social History Tobacco Use [...] Sex Assigned at Female 12/12/2024 11:16 AM FAVOR MAKER Legal Sex Female 12:12 PM CDT Gender Identity Female 12/12/2024 11:16 AM FAVOR MAKER Sexual Orientation Not on file documented as of this encounter Plan of Treatment Not on file documented as of this encounter Visit Diagnoses Not on filedocumented in this encounter Additional Health Concerns Assessment Noted Time PHQ-9 Depression Total Score: 8 02/29/20 19 9:07 AM CDT documented as of this encounter Care Teams Photography Intern Relationship Specialty Start Date End Date Deena Gar FNP [address] [place] [address] PCP - General Nurse Practitioner Family 02/22/19 documented as of this encounter
--- OUTSIDE RECORDS SUMMARY | 2024-12-22 07:32 | XMS_ITS | Continuity of Care Document ---
Author Organization [facility] Address [address] [place] [address] Phone Care Team Providers Care Packaging Associate Name Role Phone Ortega OD, John Unavailable Unavailable Advance Directives Directive Yes / No Effective Date File Name No Information Encounters Encounter Description Practice Location Reason(s) For Visit Diagnoses Date Provider Providers Copied on Encounter [facility] [place] [facility], [address], [place], [place], [id number], [place] tel:[phone] [facility] No Information 7-200 2 Ortega OD John. [address] , [address], [place], [address], [place]. tel:[phone] Family History Family Member Type Diagnosis Age [...]
--- OUTSIDE RECORDS SUMMARY | 2024-12-22 07:32 | XMS_ITS | Encounter Summary ---
Author Organization [facility] Address [address] [place] [address] Care Team Providers Care Eye Specialist Name Role Phone Deena Gar Primary Care Provider [phone] Encounter Details Date Type Department Care Team (Late st Contact Info) Description 04/29/2023 MyChart Message Enc [facility] Medical Group - [facility] [address] [place], [place] [address] [employer] Provider Air Quality Message Social History Tobacco [...] Sex Assigned at Female 12/12/2024 11:16 AM ACTING MANAGER Legal Sex Female 12:12 PM CDT Gender Identity Female 12/12/2024 11:16 AM ACTING MANAGER Sexual Orientation Not on file documented as of this encounter Plan of Treatment Not on file documented as of this encounter Visit Diagnoses Not on filedocumented in this encounter Additional Health Concerns Assessment Noted Time PHQ-9 Depression Total Score: 4 01/03/20 23 2:29 PM ACTING MANAGER documented as of this encounter Care Teams Eye Specialist Relationship Specialty Start Date End Date Deena Gar FNP [address] [place] [address] PCP - General Nurse Practitioner Family 02/22/19 documented as of this encounter
--- OUTSIDE RECORDS SUMMARY | 2024-12-22 07:33 | XMS_ITS | Encounter Summary ---
Author Organization [facility] Address [address] [place] [address] Care Team Providers Care Kosher Dietary Service Supervisor Name Role Phone Deena Gar Primary Care Provider [phone] Encounter Details Date Type Department Care Team (Late st Contact Info) Description 03/01/2019 BioPharma Manufacturing Solutionst Message Enc [facility] Medical Group Family & Internal Medicine [facility] [address] [place] [address] Deena Gar FNP [facility] [place], [place] [phone] RE: FW: Question Social History Tobacco Use [...] Sex Assigned at Female 12/12/2024 11:16 AM LEAN LEADER Legal Sex Female 12:12 PM CDT Gender Identity Female 12/12/2024 11:16 AM LEAN LEADER Sexual Orientation Not on file documented as of this encounter Plan of Treatment Not on file documented as of this encounter Visit Diagnoses Not on filedocumented in this encounter Additional Health Concerns Assessment Noted Time PHQ-9 Depression Total Score: 8 02/29/20 19 9:07 AM CDT documented as of this encounter Care Teams Kosher Dietary Service Supervisor Relationship Specialty Start Date End Date Deena Gar FNP [address] [place] [address] PCP - General Nurse Practitioner Family 02/22/19 documented as of this encounter
--- OUTSIDE RECORDS SUMMARY | 2024-12-22 07:33 | XMS_ITS | Clinical Summary ---
Author Organization [facility] Address [address] [place] [address] Care Team Providers Care Broadcast News Producer Name Role Phone Diane Thomas DANI Primary Care Provider [phone] Allergies Active Allergy Reactions Criticality Noted Date [...] ns:Chronic bronchitis, unspecified chronic bronchitis type (CMS/HCC [facility]) Inhale 2 puffs into the lungs every [...] Chronic bronchitis, unspecif ied chronic bronchitis type ([facility]) 02/25/2019 Hyperlipidemia 02/22/2019 Resolved Problems Problem Noted [...] 09/15/2022 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 12/24/2023 Cough 10/09/2019 07/12/2021 Diverticulitis 02/28/2019 07/12/2021 Pneumonia 02/28/2019 07/12/2021 Diarrhea 02/28/2019 07/12/2021 Screening for osteoporosis 02/25/2019 0 07/13/2020 Need for shingles vaccine 02/25/2019 Encounters Date Type Department Care Team Description 12/21/2024 10:40 AM SAND SCREENER Telemedicine [facility] Medical Group Family & Internal Medicine [address] [address] Diane Thomas FNP Cough; Sore Throat; Congestion; Fever (99.6) 12/21/2024 Travel 12/14/2024 Telephone [facility] Internal [address] [address] Diane Thomas FNP Radiology Results 12/13/2024 Telephone [facility] Internal [address] [address] Diane Thomas FNP Prior Authorization (Lidocaine (lidoderm) 4% patches. ) 12/13/2024 Telephone [facility] Internal [address] [address] Diane Thomas FNP Prior Authorization (Tretinoin (Retin-A) 0.1% cream) 12/12/2024 11:00 AM SAND SCREENER Office Visit [facility] Internal [address] [phone] Diane Thomas FNP Back Pain (Lower back pain. The patient states the pain comes on quickly and lasts about 4 days. She states she has used a Tens unit and lidocaine lotion. ) 12/12/2024 - 12/12/2024 11:59 PM SAND SCREENER Hospital [facility] [address] [place] [address] Diane Thomas FNP Discharge Disposition: Home or [...] MCG/ 0.5 ML DOSE 12/27/2020,11/29/2020 [facility] COVID-19 (GLASS CYLINDER FLANGER RICK KRYS), MRNA, LNP-S, PF, 50 MCG/ [...] Sex Assigned at Female 12/12/2024 11:16 AM SAND SCREENER Legal Sex Female 12:12 PM CDT Gender Identity Female 12/12/2024 11:16 AM SAND SCREENER Sexual Orientation Not on file Last Filed Vital Signs Vital Sign Reading Time Taken Comments Blood Pressure 124/78 12/12/2024 11:20 AM SAND SCREENER Pulse 74 12/12/2024 11:20 AM SAND SCREENER Temperature 36.5 C (97.7 F) 12/12/2024 11:20 AM SAND SCREENER Respiratory Rate 16 12/12/2024 11:20 AM SAND SCREENER Oxygen Saturation 98% 12/12/2024 11:20 AM SAND SCREENER Inhaled Oxygen Concentration - - Weight 82.4 kg (181 lb 9.6 oz) 12/12/2024 11:20 AM SAND SCREENER Height 154.9 cm (5' 1 ) 12/12/2024 11:20 AM SAND SCREENER Body Mass Index 34.31 12/12/2024 11:20 AM SAND SCREENER Plan of Treatment Health Maintenance Due Date [...] 03/2023, 08/07/2022, Additional history exists PHQ-2 (Physician Koi) Completed 12/21/2024 Meningococcal B Vaccine Aged Out [...] URINE BACTERIA CULTURE Routine 12/12/2024 12:16 PM SAND SCREENER Leukocytes in urine XR LUMB SPINE 3V Routine 12/12/2024 12:0 9 PM SAND SCREENER Chronic right-sided low back pain without sciatica MG/PCCL UDS W CONF Routine 12/12/2024 11 :10 AM SAND SCREENER Encounter for long-term (current) use of medications [...] * URINE BACTERIA CULTURE (12/12/2024 12:16 PM SAND SCREENER) SPEC DESCRIPTION URINE VOIDED 12/12/2024 7:03 PM SAND SCREENER [facility] SPECIAL REQUESTS NO SPECIAL REQUEST 12/12/2024 7:03 PM SAND SCREENER [facility] CULTURE RESULT FEW CONTAMINANTS 12/03 8:19 AM SAND SCREENER [facility] URINE SPECIMEN FROM URETHRA / Unknown 12/12/2024 12:16 PM SAND SCREENER 12/12/2024 8:52 PM SAND SCREENER us Diane Thomas RADIO OPERATOR GROUND MICROBIOLOGY - GENERAL ORDERAB LES Final Result [facility] [address] [place] [address], [id number] * XR LUMB SPINE 3V (12/12/2024 12:09 PM SAND SCREENER) Anatomical Region Laterality Modality Spine Radiographic Tonja ging 12/13/2024 7:03 AM SAND SCREENER Impressions 12/13/2024 7:03 AM SAND SCREENER IMPRESSION: No acute findings Ordered By: DIANE THOMAS Interpreted By: Jose Scruggs MD, 12/13/2024 7:03 AM Narrative 12/13/2024 7:03 AM SAND SCREENER [facility] [address] 3 VIEWS OF THE LUMBAR SPINE Clinical [...] Procedure Note Jose Scruggs MD - 12/13/2024 [facility] [place] [address] 3 VIEWS OF THE LUMBAR SPINE Clinical [...] Scruggs MD, 12/13/2024 7:03 AM Diane Thomas RADIO OPERATOR GROUND GENERAL IMAGING Final Result * (ABNORMAL) MG/PCCL UDS W CONF (12/12/2024 11:10 AM SAND SCREENER) RESULT SUMMARY [employer] [facility] Comment: Prescribed Prescribed Not Prescribed Consistent Inconsistent Inconsistent Tramadol PRESCRIBED DRUG 1 (U) Tramadol [employer] [facility] FENTANYL SCREEN (U) NEGATIVE <0.5 ng/mL [facility] [place] [place] MORPHINE (U) NEGATIVE <10 ng/mL [facility] DESMETHYLTRAMADOL (U) 2,069(H) <100 ng/mL [facility] [place] DESMETHYLTRAMADOL MEDMATCH (U) CONSISTENT [facility] [place] TRAMADOL (U) 4,606(H) <100 ng/mL [facility] [place] TRAMADOL (MEDMATCH) CONSISTENT [facility] TRAMADOL COMMENTS [facility] Comment:See Tramadol Notes, LDT Notes AMPHETAMINES PM NEGATIVE <500 ng/mL [facility] BARBITURATES PM (U) NEGATIVE <300 ng/mL [facility] BENZODIAZEPINES PM (U) NEGATIVE <100 ng/mL [facility] COCAINE METABOLITE PM (U) NEGATIVE <150 ng/mL [facility] MARIJUANA METABOLITE PM (U) NEGATIVE <20 ng/mL [facility] METHADONE PM (U) NEGATIVE <100 ng/mL [facility] OPIATES PM (U) NEGATIVE <100 ng/mL [facility] OXYCODONE PM (U) NEGATIVE <100 ng/mL [facility] [place] [facility] CREATININE RANDOM (U) 31.1 > or = 20.0 mg/dL [facility] [place] [facility] pH PM (U) 6.8 4.5 - 9.0 [facility] [place] OXIDANT NEGATIVE <200 mcg/mL [facility] NOTE [facility] Comment: This drug testing is for medical [...] analytical performance characteristics have been determined by [facility]. It has not been cleared or approved by the FDA. This assay has been validated pursuant to the CLIA regulations and is used for clinical purposes. medMATCH(R) enables providers to identify if drug use is consistent or inconsistent with a corresponding prescribed medication(s) list. Healthcare Providers needing Interpretation assistance, please contact us at [phone] ( ) M-F, 8am to 10pm EST URINE SPECIMEN / Unknown 12/12/2024 11:10 AM SAND SCREENER 12/13/2024 1:15 AM SAND SCREENER Narrative Resulting Agency Comment Performing Organization Information: Site ID: [id number] Name: [employer] Address: [address] [place] [address] Director: Nicanor Monahan Site ID: [id number] Name: [facility] Address: [address] [place] [address] Director: Peg Hassan MD us Diane Thomas RADIO OPERATOR GROUND URINE ORDERABLES Final Result Performing Organization Address City/State/[facility] Co de Phone Number [facility] [place] [facility] [employer] [facility] [address] [place] [address], [employer] [facility] [address] [place] [address] * (ABNORMAL) URINALYSIS AUTO DIP (12/12/2024) COLOR (U) YELLOW YELLOW [facility] TRANSPARENCY CLOUDY(A) CLEAR [facility] GLUCOSE (U) NEGATIVE NEGATIVE MG/DL [facility] BILIRUBIN (U) NEGATIVE NEGATIVE [facility] KETONES MG/DL (U) NEGATIVE NEGATIVE MG/DL [facility] SPECIFIC GRAVITY (U) 1.010 1.001 - 1.035 [facility] BLOOD (U) TRACE (Hemolyzed)( A) NEGATIVE [facility] U PH 7.0 5.0 - 9.0 [facility] PROTEIN (U) NEGATIVE NEGATIVE mg/dL [facility] UROBILINOGEN 0.2 0.2 - 1.0 EU/dL = mg/dL [facility] NITRITES NEGATIVE NEGATIVE MG/DL [facility] LEUKOCYTES (U) 2+ (MODERATE)(A ) NEGATIVE [facility] URINE SPECIMEN OBTAINED BY CLEAN CATCH PROCEDURE / Unknown 12/12/2024 us Diane Kilzer RADIO OPERATOR GROUND URINE ORDERABLES Final Result [facility] [address] [place] [address], [place] * MAMMOGRAM GENERIC (SCAN ORDER) (11/23/2024) Anatomical Region Laterality Modality Other 11/23/2024 [facility] Scanned SCANNING Final Resu lt * ULTRASOUND GENERIC (SCAN ORDER) (11/23/2024) Anatomical Region Laterality Modality Other 11/23/2024 [facility] Scanned SCANNING Final Resu lt * COLOGUARD (EXACT SCIENCE) (07/31/2021 9:00 AM CDT) COLOGUARD RESULT Negative Negative [facility] (CLIA #:[id number]) Comment: NEGATIVE TEST RESULT. A negative Cologuard [...] (Kaylie Bhat al, N Engl J Med 2014;370(14):4595-1193) The normal value (reference range) for this assay is negative. COLOGUARD RE-SCREENING RECOMMENDATION: Periodic colorectal cancer screening is an important part of preventive healthcare for asymptomatic individuals at average risk for colorectal cancer. Following a negative Cologuard result, the [place] [employer] Society and U.S. Multi-Society Task Force screening guidelines recommend a Cologuard re-screening interval of 3 years. References: [place] [employer] Guideline for Colorectal Cancer Screening: https://www.cancer.org/cancer/eigzb-lzxuvu-hiiqqx/gzcflnpkq-kpfsslpqm-tinrdyw/ac s-rec ommendations.html.; Leroy DK, Abdi CR, Jolanta BerryK, Colorectal Cancer Screening: Recommendations for Physicians and Patients from the U.S. Multi-Society Task Force on Colorectal Cancer Screening , Am J Gastroenterology 2017; 112:9970-6439. TEST DESCRIPTION: Composite algorithmic analysis of stool [...] Redd et al, N Engl J Med 2014;370(14):7489-1734.) Cologuard may produce a false negative or false positive result (no colorectal cancer or precancerous polyp present at colonoscopy follow up). A negative Cologuard test result does not guarantee the absence of CRC or advanced adenoma (pre-cancer). The current Cologuard screening interval is every 3 years. ([place] [employer] Society and U.S. Multi-Society Task Force). Cologuard performance data in a 10,000 patient pivotal study using colonoscopy as the reference method can be accessed at the following location: www.[employer].OnDeck/results. Additional description of the Cologuard test process, warnings and precautions can be found at www.[employer] Pharm[employer].com. Stool specimen (specimen) STOOL SPECIMEN / Unknown 07/31/2021 9:00 AM CDT 08/02/2021 1:40 PM CDT us Diane Rin RADIO OPERATOR GROUND BODY FLUIDS AND STOOLS ORDERAB LES Final Result [facility] ([email or web address] LAB) [address] [place] [address], [facility] (CLIA #:[id number]) [address] [place] [address] * BONE DENSITY (03/29/2019) Anatomical Region Laterality Modality Other us Documents Scanned SCANNING Edited Result - Final * COLONOSCOPY (06/13/2011) us Documents Scanned SCANNING Edited Result - Final from Last 3 Months or Most Recently Relevant to Health Maintenance Insurance [employer] Care Teams Broadcast News Producer Relationship Specialty Start Date End Date Diane Thomas FNP [address] [place] [address] PCP - General Nurse Practitioner Family 02/22/19
[2024-12-22 07:53] LABS: Influenza A QL RT-PCR Negative (Negative); Influenza B QL RT-PCR Negative (Negative); RSV RNA, RT-PCR Positive (Negative); SARS-CoV-2 RNA PCR Negative (Negative)
[2024-12-22 08:11] VITALS: BP 141/72; PULSE 94; RESP 18; TEMP 36.7; O2SAT 95
== END 2024-12-22 08:31 | disposition home or self-care (01) ==
PROVIDERS: Emergency Provider Emergency Medicine; PCP Nurse Practitioner Family
DX: J18.9 Pneumonia, unspecified organism (principal); B97.4 Respiratory syncytial virus as the cause of diseases classified elsewhere; Z20.822 Contact with and (suspected) exposure to COVID-19; I10 Essential (primary) hypertension; J44.9 Chronic obstructive pulmonary disease, unspecified; E78.00 Pure hypercholesterolemia, unspecified; K21.9 Gastro-esophageal reflux disease without esophagitis; Z87.891 Personal history of nicotine dependence; Z90.710 Acquired absence of both cervix and uterus; Z90.49 Acquired absence of other specified parts of digestive tract; Z79.899 Other long term (current) drug therapy
CPT/HCPCS: 36415; 71046; 80053; 85025; 87637; 96361; 96374; 99284; J1885; J7030